=== PATIENT | male | born 1985 | race Caucasian/White ===

== ENCOUNTER 2016-06-06 00:54 | Inpatient (IN) | payer OTHER ==
[2016-06-06] VITALS (18 sets, daily range): BP systolic 120–222; BP diastolic 60–137; PULSE 53–108; RESP 17–28; TEMP 94.1–98; O2SAT 97–100
[2016-06-06] MEDS ORDERED: LORazepam 2 MG/ML VIAL ONE ×2 (00:59→01:20)
[2016-06-06] MEDS ORDERED: SUCCINYLCHOLINE CHLORIDE 200 MG/10 ML VIAL ONE (01:00)
[2016-06-06] MEDS ORDERED: ETOMIDATE 20 MG/10 ML VIAL ONE (01:01)
[2016-06-06] MEDS ORDERED: ONDANSETRON HCL 4 MG/2 ML VIAL ONE (01:14)
[2016-06-06 01:17] LABS: I-STAT POTASSIUM 3.1 MMOL/L (3.5-4.9)
[2016-06-06 01:21] LABS: AUTOMATED NEUTROPHIL # 7.2 TH/MM3 (1.8-7.7); BASOPHIL # 0.2 TH/MM3 (0-0.2); BASOPHIL % 0.9 % (0.0-2.0); EOSINOPHIL # 0.2 TH/MM3 (0-0.4); EOSINOPHIL % 1.3 % (0.0-4.0); HEMATOCRIT 44.5 % (39.0-51.0); LYMPHOCYTE # 8.2 TH/MM3 (1.0-4.8); MEAN CELL VOLUME 85.8 FL (80.0-100.0); MEAN CORPUSCULAR HEMOGLOBIN 30.5 PG (27.0-34.0); MEAN CORPUSCULAR HGB CONC 35.5 % (32.0-36.0); MONO % 7.7 % (0.0-8.0); NEUT % 42.1 % (16.0-70.0); PLATELET COUNT 333 TH/MM3 (150-450); RED BLOOD COUNT 5.18 MIL/MM3 (4.50-5.90)
[2016-06-06 01:28] LABS: APTT (PATIENT) 21.9 SEC (24.3-30.1); PROTHROMBIN TIME - PATIENT 11.1 SEC (9.8-11.6)
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
[2016-06-06 01:29] LABS: HEMO FLAGS AUTO DIFF
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
[2016-06-06] MEDS: SODIUM CHLOR 0.9% 1000 ML INJ 1,000 ML IV SCH ×3 (01:32→20:09)
[2016-06-06] MEDS ORDERED: oxyCODONE/ACETAMINOPHEN 5 MG/325 MG TAB PO PRN (01:45)
[2016-06-06] MEDS ORDERED: SODIUM CHLORIDE 0.9% FLUSH 5 ML FLUSH IVF PRN (01:45)
[2016-06-06] MEDS ORDERED: ONDANSETRON HCL 4 MG/2 ML VIAL IV PRN (01:45)
[2016-06-06] MEDS ORDERED: NALOXONE HCL 0.4 MG/ML AMP IV PRN (01:45)
[2016-06-06] MEDS ORDERED: Post-op Orders (for Pharmacy) MISC XX ONE (01:45)
[2016-06-06] MEDS ORDERED: IOHEXOL 350 MG/ML 10 ML VIAL (for RAD DIAG) IV ONE ×2 (01:47→09:25)
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
[2016-06-06 03:11] LABS: EOSINOPHILS 3 % (0-4); POLYS (SEG NEUTROPHILS) 41 % (16-70); WBC DIFF SAMPLE 100
[2016-06-06 03:12] LABS: OVALOCYTES 1+ (NORMAL); PLATELET ESTIMATE SMEAR NORMAL (NORMAL); PLATELET MORPHOLOGY NORMAL (NORMAL); SCAN/DIFF FINAL DIFF MANUAL
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
[2016-06-06] MEDS ORDERED: MORPHINE SULFATE 8 MG/ML INJ ONE (04:22)
[2016-06-06] MEDS ORDERED: hydrALAZINE HCL 20 MG/ML VIAL ONE (04:37)
[2016-06-06] MEDS ORDERED: HALOPERIDOL LACTATE 5 MG/ML AMP IM PRN (05:00)
[2016-06-06] MEDS ORDERED: fentaNYL DRIP 250 ML IV SCH ×2 (05:00→17:00)
[2016-06-06] MEDS ORDERED: MORPHINE SULFATE 4 MG/ML INJ IV PUSH PRN (05:00)
[2016-06-06] MEDS ORDERED: MIDAZOLAM 100 MG/ML INJ 100 ML IV SCH (05:00)
[2016-06-06] MEDS ORDERED: MIDAZOLAM HCL 5 MG/ML VIAL (1 ML) ONE ×2 (05:12→08:23)
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
[2016-06-06] MEDS: fentaNYL 2,500 MCG/NS 250 ML IV SCH ×2 (05:41→18:13)
[2016-06-06] MEDS: MIDAZOLAM 100 MG/NS 100 ML DRIP Premix IV SCH ×2 (05:41→18:13)
[2016-06-06] MEDS: hydrALAZINE HCL 20 MG/ML VIAL IVS PRN ×2 (05:42→07:39)
[2016-06-06] MEDS ORDERED: DEXMEDETOMIDINE 200 MCG/50 ML NS IV SCH (06:30)
[2016-06-06] MEDS ORDERED: HALOPERIDOL LACTATE 5 MG/ML AMP IV PUSH PRN (06:45)
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
[2016-06-06 07:08] LABS: AMPHETAMINE, URINE NEG (NEG); BARBITURATES, URINE NEG (NEG); COCAINE, URINE NEG (NEG)
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
[2016-06-06] MEDS ORDERED: SODIUM CHLORIDE 0.9% FLUSH 5 ML FLUSH IV FLUSH PRN (07:30)
[2016-06-06] MEDS ORDERED: RESP: ALBUTEROL 2.5 MG/IPRATROPIUM 0.5 MG NEB (PRN) INH (07:30)
[2016-06-06] MEDS: levETIRAcetam INJ 500 MG in SODIUM CHLORIDE 0.9% INJ 100 ML IV SCH ×2 (07:39→20:08)
[2016-06-06] MEDS ORDERED: ROCURONIUM INJ 50 MG/5 ML VIAL ONE (08:24)
[2016-06-06] MEDS ORDERED: MANNITOL INJ 50 ML ONE ×3 (08:35→10:35)
[2016-06-06] MEDS ORDERED: PROPOFOL 1000 MG/100 ML INJ 100 ML ONE ×4 (08:45→23:07)
[2016-06-06] MEDS ORDERED: PANTOPRAZOLE SOD 40 MG DELAYED RELEASE TAB PO SCH (09:00)
[2016-06-06] MEDS: SODIUM CHLORIDE 0.9% FLUSH 5 ML FLUSH IVF SCH ×2 (09:00→20:08)
[2016-06-06] MEDS ORDERED: SODIUM CHLORIDE 0.9% FLUSH 5 ML FLUSH IV FLUSH SCH (09:00)
[2016-06-06] MEDS: FAMOTIDINE 20 MG TAB PO SCH ×2 (09:00→20:07)
[2016-06-06] MEDS: LACTULOSE SYRUP 20 GM/30 ML CUP PO SCH (09:00)
[2016-06-06] MEDS: DOCUSATE SODIUM 100 MG CAP PO SCH ×2 (09:00→20:08)
[2016-06-06] MEDS ORDERED: MAGNESIUM SULFATE INJ 4 GM in DEXTROSE 5% IN WATER 100ML INJ 92 ML IV PRN ×2 (09:15)
[2016-06-06] MEDS ORDERED: POTASSIUM PHOSPHATE MONOBASIC 500 MG TAB PO PRN (09:15)
[2016-06-06] MEDS ORDERED: MAGNESIUM OXIDE 400 MG TAB PO PRN (09:15)
[2016-06-06] MEDS ORDERED: POTASSIUM PHOSPHATE MONOBASIC 500 MG TAB PO/TUBE PRN (09:15)
[2016-06-06] MEDS ORDERED: DEXTROSE 5% IV PRN ×2 (09:15)
[2016-06-06] MEDS ORDERED: SODIUM PHOSPHATE INJ 30 MMOL in SODIUM CHLOR 0.9% 250 ML INJ 240 ML IV PRN (09:15)
[2016-06-06] MEDS ORDERED: MAGNESIUM SULFATE IV PRN ×2 (09:15)
[2016-06-06] MEDS ORDERED: WATER IV PRN ×2 (09:15)
[2016-06-06] MEDS ORDERED: POTASSIUM CHLOR 40 MEQ PREMIX 100 ML IV PRN (09:15)
[2016-06-06] MEDS ORDERED: POTASSIUM CHLOR 20 MEQ PREMIX 100 ML IV PRN ×2 (09:15)
--- NOTE | 2016-06-06 09:20 | RADRPT ---
EXAM DATE/TIME: 06/06/2016 09:01 [facility] COMPARISON: CT BRAIN W/O CONTRAST, June 06, 2016, 1:17. INDICATIONS : Changes since prior CT. Dilated right pupil. RADIATION DOSE: 56.35 CTDIvol (mGy) MEDICAL HISTORY : Non-responsive. SURGICAL HISTORY : Non-responsive. ENCOUNTER: Subsequent ACUITY: 2 days PAIN SCALE: Non-responsive LOCATION: cranial TECHNIQUE: Multiple contiguous axial images were obtained of the head. Using automated exposure control and adj ustment of the mA and/or kV according to patient size, radiation dose was kept as low as reasonably a chievable to obtain optimal diagnostic quality images. FINDINGS: CEREBRUM: Since the prior exam the patient has developed a large 7 cm parenchymal right frontal hematoma that e xtends into the right lateral ventricle. Hemorrhage is seen within the right lateral ventricle, left lateral ventricle, third ventricle and fourth ventricle now. There continues to be subarachnoid hemor rhage throughout. There are areas of contusion at the anterior aspect of the frontal lobes bilaterall y a more prominent right. There is new hemorrhage in the anterolateral aspect of the posterior fossa adjacent to the inferior kindra. The there is 1.4 cm of right to left midline shift. The basal cisterns and cortical sulci are completely effaced. POSTERIOR FOSSA: Hemorrhage is seen in the fourth ventricle. There is new hemorrhage in the anterolateral aspect of th e posterior fossa adjacent to the inferior kindra. No CSF is seen at the foramen magnum. EXTRACRANIAL: The visualized portion of the orbits is intact. There is a large soft tissue hematoma at the left SKULL: There is fracturing of the left occipital bone adjacent to the left parietal bone. This fracture exte nds into the medial aspect of the right mastoids. Again noted is the skull base fracture on the left. CONCLUSION: Development of a large right frontal hematoma with extension into the ventricular system. There is ve ry prominent midline shift from right to left of 1.4 cm and effacement of the cortical sulci, basal c isterns, and the foramen magnum. There continues to be subarachnoid hemorrhage and inferior bifrontal hematomas. Gasper Duarte MD on June 06, 2016 at 9:11 Board Certified Radiologist. This report was verified electronically.
[2016-06-06] MEDS: RESP: ALBUTEROL 2.5 MG/IPRATROPIUM 0.5 MG NEB (SCH) INH ×3 (10:00→20:29)
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
[2016-06-06] MEDS ORDERED: NORMOSOL R INJ 2,000 ML IV ONE (10:24)
[2016-06-06] MEDS ORDERED: PROPOFOL 200 MG/20 ML AMP IV ONE (10:24)
[2016-06-06] MEDS ORDERED: SODIUM CHLORID 0.9% 500 ML INJ 500 ML IV ONE (10:24)
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
[2016-06-06] MEDS ORDERED: THROMBIN (TOPICAL) 5,000 UNIT VIAL ONE ×2 (11:00→12:53)
[2016-06-06] MEDS ORDERED: GELFOAM SIZE 100 OTHER ONE (11:00)
[2016-06-06] MEDS ORDERED: GENTAMICIN SULFATE 80 MG/2 ML VIAL IRRIGATION ONE (11:00)
[2016-06-06] MEDS ORDERED: LIDOCAINE 1%/EPINEPHrine 1:100,000 SOLN 30 ML VIAL INFIL ONE (11:00)
[2016-06-06] MEDS ORDERED: ceFAZolin INJ 1,000 MG VIAL IV ONE (11:30)
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
--- NOTE | 2016-06-06 11:43 | PD.PROCEDR ---
Procedure Note Procedure DX: Encephalopthy, Respiratory Failure (J96.01) OP: Orotracheal Intubation (20999) Procedure: Bag mask ventilation using oral airway. Versed 10 mg and rocuronium 100 mg IV. Intubated orally with 8.0 tube. Position confirmed with CO2 detection, breath sounds, sats 100%. CXR pending, will review. William Duarte MD Jun 06, 2016 11:43
[2016-06-06] MEDS ORDERED: fentaNYL CITRATE 250 MCG/5 ML AMP ONE ×2 (11:47→12:19)
[2016-06-06 12:05] LABS: BLOOD GAS BASE EXCESS -7.6 mmol/L (-2-2); BLOOD GAS CARBOXYHEMOGLOBIN 1.6 % (0-4); BLOOD GAS HCO3 16 mmol/L (22-26); BLOOD GAS METHEMOGLOBIN 1.2 % (0-2); BLOOD GAS O2 HGB SATURATION 97 % (90-100); BLOOD GAS OXYGEN CONTENT 20.2 Vol % (12.0-20.0); BLOOD GAS PCO2 28 mmHg (38-42); BLOOD GAS PO2 287 mmHg (61-120); BLOOD GAS TOTAL HGB 14.4 G/DL (12.0-16.0); TEMP CORR TO 98.6
[2016-06-06 12:06] LABS: CRITICAL VALUE YES; DRAW SITE ALINE; FIO2 70 %; OXYGEN DEVICE O.R. GAS; STAT YES
[2016-06-06] MEDS ORDERED: MIDAZOLAM HCL 2 MG/2 ML VIAL ONE (12:19)
--- NOTE | 2016-06-06 15:29 | RADRPT ---
EXAM DATE/TIME: 06/06/2016 15:05 [facility] COMPARISON: No previous studies available for comparison. INDICATIONS : Evaluate central line placement. MEDICAL HISTORY : None. SURGICAL HISTORY : None. ENCOUNTER: Initial ACUITY: 1 day PAIN SCORE: 0/10 LOCATION: Right chest FINDINGS: No infiltrate, effusion or pneumothorax seen. Cardiomediastinal contours remain within normal limits. Patient is intubated. Endotracheal tube tip is about 4 cm above the ruby. There is a right internal jugular cordis with tip in the superior vena cava. Nasogastric tube courses into the stomach. CONCLUSION: Appropriate line and tube positions as above. Clear lungs. Gasper Mijares MD on June 06, 2016 at 15:26 Board Certified Radiologist. This report was verified electronically.
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
[2016-06-06 16:02] LABS: BLOOD GAS BASE EXCESS -4.9 mmol/L (-2-2); BLOOD GAS HCO3 18 mmol/L (22-26); BLOOD GAS METHEMOGLOBIN 0.9 % (0-2); BLOOD GAS O2 HGB SATURATION 98 % (90-100); BLOOD GAS OXYGEN CONTENT 20.3 Vol % (12.0-20.0); BLOOD GAS PCO2 27 mmHg (38-42); BLOOD GAS PO2 501 mmHg (61-120); BLOOD GAS TOTAL HGB 13.8 G/DL (12.0-16.0); CRITICAL VALUE NO; DRAW SITE ALINE; FIO2 100 %; OXYGEN DEVICE VENTILATOR; TEMP CORR TO 98.6; VENT SETTINGS PRVC
[2016-06-06 16:03] LABS: STAT NO
--- NOTE | 2016-06-06 17:18 | HHI.CCPN ---
Subjective 24 Hour Review/Hospital Course Patient was brought to ICU confused around 3 in the morning. At that time the the injury was confined to skull fractures and the some subarachnoid and subdural bleeding with intraparenchymal patchy hemorrhages on the left side. He was evaluated and seen in the ICU by Dr. Mccormick the neurosurgeon. Apparently around 10 AM patient suddenly blew right pupil and had to be intubated and the ventilated. He is now noted to have a large right intra-cerebral bleed and has been taken to the operating room for evacuation of the same. Objective Vital Signs Date Time Temp Pulse Resp B/P Pulse Ox O2 Delivery O2 Flow Rate FiO2 06/06/16 16:35 100 50 06/06/16 16:00 72 06/06/16 16:00 95.0 24 126/62 06/06/16 00:55 Non-Rebreather 15.00 Result Diagram: 06/06/16 0055 Other Results Laboratory Tests Test 06/06/16 06/06/16 11:43 15:58 Blood Gas Puncture Site [facility] Blood Gas Patient Temperature 98.6 98.6 Blood Gas HCO3 16 mmol/L 18 mmol/L (22-26) (22-26) Blood Gas Base Excess -7.6 mmol/L -4.9 mmol/L (-2-2) (-2-2) Blood Gas Oxygen Saturation 97 % (90-100) 98 % (90-100) Arterial Blood pH 7.39 7.45 (7.380-7.420) (7.380-7.420) Arterial Blood Partial 28 mmHg (38-42) 27 mmHg (38-42) Pressure CO2 Arterial Blood Partial 287 mmHg 501 mmHg Pressure O2 (61-120) (61-120) Arterial Blood Oxygen Content 20.2 Vol % 20.3 Vol % (12.0-20.0) (12.0-20.0) Arterial Blood 1.6 % (0-4) 1.0 % (0-4) Carboxyhemoglobin Arterial Blood Methemoglobin 1.2 % (0-2) 0.9 % (0-2) Blood Gas Hemoglobin 14.4 G/DL 13.8 G/DL (12.0-16.0) (12.0-16.0) Oxygen Delivery Device O.R. GAS VENTILATOR Blood Gas Inspired Oxygen 70 % 100 % Blood Gas Ventilator Setting PRVC Exam [employer] Status post craniotomy and evacuation of a right intraparenchymal hematoma and ventriculostomy placement ICPs are normal in the range of 4-10 mmHg and center perfusion pressure remains around 80 mmHg with some Levophed in order to maintain mean arterial pressure [place] Coma Scale is now 3 patient is on small dose propofol Will add fentanyl Hemodynamic/Cardiac Hemodynamically intact with the Levophed to maintain maintain perfusion pressure Pulmonary/Respiratory Bilateral breath sounds ventilatory supported Abdomen/GI Nutrition Abdomen soft Assessment and Plan Attestation The exam, history, and the medical decision-making described in the above note were completed with the assistance of the mid-level provider. I reviewed and agree with the findings presented. I attest that I had a [id number] encounter with the patient on the same day, and personally performed and documented my assessment and findings in the medical record. Critical care time 40 minutes. Quyen Juares MD Jun 06, 2016 17:18
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
[2016-06-06] MEDS ORDERED: 3% SALINE INJ 500 ML IV ONE (18:15)
[2016-06-06 19:11] LABS: ANION GAP 10 MEQ/L (5-15); AST (GOT) 34 U/L (15-37); BICARBONATE 22.7 MEQ/L (21.0-32.0); BLOOD UREA NITROGEN 10 MG/DL (7-18); CHLORIDE 110 MEQ/L (98-107); GLOMERULAR FILTRATION RATE 60 ML/MIN (>89); POTASSIUM 3.8 MEQ/L (3.5-5.1); SODIUM (NA) 143 MEQ/L (136-145)
[2016-06-06 19:15] LABS: ALKALINE PHOSPHATASE 48 U/L (45-117); ALT (GPT) 41 U/L (12-78); TOTAL BILIRUBIN ADULT 1.1 MG/DL (0.2-1.0)
[2016-06-06] MEDS ORDERED: SODIUM CHLORIDE 23.4% INJ 240 MEQ in SYRINGE/BAG 1 EA IV ONE (19:30)
[2016-06-06] MEDS: CHLORHEXIDINE 0.12% (ORAL KIT) 15 ML CUP MT SCH (20:00)
[2016-06-06] MEDS: MAGNESIUM HYDROXIDE SUSP 30 ML CUP PO SCH (20:07)
[2016-06-06 21:01] LABS: MEAN CORPUSCULAR HGB CONC 36.3 % (32.0-36.0)
[2016-06-07] VITALS (27 sets, daily range): BP systolic 99–154; BP diastolic 51–69; PULSE 82–109; RESP 20–24; TEMP 95.9–98.1; O2SAT 92–100
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
[2016-06-07] MEDS ORDERED: PROPOFOL 1000 MG/100 ML INJ 100 ML ONE ×3 (01:25→11:21)
[2016-06-07] MEDS: fentaNYL 2,500 MCG/NS 250 ML IV SCH ×3 (02:34→20:30)
[2016-06-07] MEDS: MIDAZOLAM 100 MG/NS 100 ML DRIP Premix IV SCH ×2 (02:40→12:22)
[2016-06-07] MEDS: RESP: ALBUTEROL 2.5 MG/IPRATROPIUM 0.5 MG NEB (SCH) INH ×4 (03:31→22:50)
--- NOTE | 2016-06-07 05:15 | RADRPT ---
EXAM DATE/TIME: 06/07/2016 04:31 [facility] COMPARISON: CT BRAIN W/O CONTRAST, June 06, 2016, 9:01. INDICATIONS : Follow-up bleed. RADIATION DOSE: 56.35 CTDIvol (mGy) MEDICAL HISTORY : Non-responsive. SURGICAL HISTORY : Non-responsive. ENCOUNTER: Subsequent ACUITY: 2 days PAIN SCALE: Non-responsive LOCATION: cranial TECHNIQUE: Multiple contiguous axial images were obtained of the head. Using automated exposure control and adj ustment of the mA and/or kV according to patient size, radiation dose was kept as low as reasonably a chievable to obtain optimal diagnostic quality images. FINDINGS: Postsurgical findings are now seen. Catheter is seen entering the right frontal region with the tip a djacent to the third ventricle. Evidence of right frontal craniectomy. Large right frontal parenchyma l hemorrhage is again seen with decrease in size. The more inferior component is unchanged. The more superior component is much smaller, now measuring 1.5 cm in greatest AP dimension compared to 7.0 cm on the prior study. Gas is seen in this region consistent with interval surgery. Surrounding parenchy mal hypodensity indicates edema/infarct. There has been interval decrease in right to left midline sh ift, and now measures 6 mm compared to 14 mm on the prior study. Intraventricular hemorrhage has decr eased. Hemorrhage is again seen in the lateral ventricles, third ventricle, and fourth ventricle. Infarct is seen in the posterior cerebral artery distribution on the right measuring 5.9 x 2.9 cm in axial dimensions. Hemorrhage at the lateral aspect of the middle cranial fossa on the right is unchan ged measuring 1.1 cm thickness. New 2 cm infarct in the posterior left cerebellar hemisphere. CONCLUSION: 1. Postsurgical findings in the right frontal lobe with marked decrease in size of parenchymal hemato ma and decrease in right to left midline shift. 2. Persistent intraventricular hemorrhage. 3. Infarcts are now seen in the right frontal lobe, as well as in the right parieto-occipital region (posterior cerebral artery distribution. 4. Infarct in the left cerebellar hemisphere. 5. Right frontal catheter now seen with tip adjacent to the third ventricle. Clifton Cartwright MD on June 07, 2016 at 5:06 Board Certified Radiologist. This report was verified electronically.
[2016-06-07 05:21] LABS: AUTOMATED NEUTROPHIL # 13.7 TH/MM3 (1.8-7.7); BASOPHIL # 0.1 TH/MM3 (0-0.2); BASOPHIL % 0.6 % (0.0-2.0); HEMATOCRIT 34.2 % (39.0-51.0); LYMPH % 8.2 % (9.0-44.0); LYMPHOCYTE # 1.4 TH/MM3 (1.0-4.8); MEAN CORPUSCULAR HEMOGLOBIN 31.3 PG (27.0-34.0); MONO % 8.9 % (0.0-8.0); NEUT % 82.3 % (16.0-70.0); PLATELET COUNT 207 TH/MM3 (150-450); RED BLOOD COUNT 3.98 MIL/MM3 (4.50-5.90); RED CELL DISTRIBUTION WIDTH 14.4 % (11.6-17.2); WHITE BLOOD COUNT 16.6 TH/MM3 (4.0-11.0)
[2016-06-07 05:24] LABS: HEMO FLAGS AUTO DIFF
--- NOTE | 2016-06-07 05:43 | RADRPT ---
EXAM DATE/TIME: 06/07/2016 03:43 [facility] COMPARISON: CHEST SINGLE AP, June 06, 2016, 15:05. INDICATIONS : Post trauma. MEDICAL HISTORY : None. SURGICAL HISTORY : None. ENCOUNTER: Subsequent ACUITY: 2 days PAIN SCORE: Non-responsive. LOCATION: Bilateral chest FINDINGS: Single AP view of the chest. Endotracheal tube and nasogastric tube unchanged. The patient is quite r otated to the right. The lungs are grossly clear. Cardiomediastinal silhouette within normal limits. No evidence of pleural effusion or pneumothorax. CONCLUSION: No acute cardiopulmonary disease identified. Clifton Cartwright MD on June 07, 2016 at 5:41 Board Certified Radiologist. This report was verified electronically.
[2016-06-07 05:57] LABS: BICARBONATE 23.9 MEQ/L (21.0-32.0); POTASSIUM 3.9 MEQ/L (3.5-5.1)
[2016-06-07 05:59] LABS: INDIRECT BILIRUBIN 0.5 MG/DL (0.0-0.8); TOTAL BILIRUBIN ADULT 0.8 MG/DL (0.2-1.0)
[2016-06-07 06:55] LABS: OVALOCYTES 1+ (NORMAL); SCAN/DIFF AUTO DIFF CONFIRMED
[2016-06-07] MEDS ORDERED: TERBUTALINE INJ 1 MG/ML AMP SQ PRN (09:00)
[2016-06-07] MEDS: MORPHINE SULFATE 4 MG/ML INJ IV PRN (09:51)
[2016-06-07] MEDS: NOREPINEPHRINE-DEXTROSE DRIP 250 ML IV SCH ×3 (09:52→20:40)
[2016-06-07] MEDS: levETIRAcetam INJ 500 MG in SODIUM CHLORIDE 0.9% INJ 100 ML IV SCH ×2 (09:57→21:34)
[2016-06-07] MEDS: FAMOTIDINE 20 MG TAB PO SCH ×2 (09:58→21:34)
[2016-06-07] MEDS: DOCUSATE SODIUM 100 MG CAP PO SCH ×2 (09:58→21:34)
[2016-06-07] MEDS: SODIUM CHLORIDE 0.9% FLUSH 5 ML FLUSH IVF SCH ×2 (09:58→21:00)
[2016-06-07] MEDS: LACTULOSE SYRUP 20 GM/30 ML CUP PO SCH (09:58)
[2016-06-07] MEDS: CHLORHEXIDINE 0.12% (ORAL KIT) 15 ML CUP MT SCH ×2 (09:59→20:00)
[2016-06-07] MEDS: SODIUM CHLOR 0.9% 1000 ML INJ 1,000 ML IV SCH ×2 (10:00→15:44)
[2016-06-07] MEDS: MULTIVITAMIN INJ 10 ML, THIAMINE INJ 100 MG, FOLIC ACID INJ 1 MG in SODIUM CHLORID 0.9%... IV SCH (10:22)
--- NOTE | 2016-06-07 11:29 | HHI.NSPN ---
Subjective History Day 1 after [facility], day 2 after craniectomy, ICP 5-40, CPP 50-65, s/p herniation, multiple areas of infarctions in the right frontal and temporal regions and in the left cerebellum. He is intubated and sedated with hypertonic saline and seizure prophylaxis. Pressors were added to improve his perfusion pressures. Vitals . Vital Signs Date Time Temp Pulse Resp B/P Pulse Ox O2 Delivery O2 Flow Rate FiO2 06/07/16 07:48 98 40 06/07/16 06:00 91 06/07/16 05:00 96.8 06/07/16 04:54 98 100 06/07/16 04:13 99 50 06/07/16 04:00 98 06/07/16 04:00 50 06/07/16 04:00 96.8 93 22 100 106/53 06/07/16 03:00 96.8 06/07/16 02:00 100 06/07/16 01:00 96.1 06/07/16 00:40 99 50 06/07/16 00:00 96.1 100 24 100 99/51 06/07/16 00:00 50 06/07/16 00:00 100 06/06/16 23:00 96.1 06/06/16 22:00 105 06/06/16 21:00 95.7 06/06/16 20:53 99 50 06/06/16 20:00 108 06/06/16 20:00 96.3 93 24 100 120/60 06/06/16 20:00 96.3 06/06/16 20:00 50 06/06/16 18:00 68 06/06/16 17:00 95.8 06/06/16 16:35 100 50 06/06/16 16:31 100 50 06/06/16 16:00 72 06/06/16 16:00 50 06/06/16 16:00 95.0 74 24 100 126/62 06/06/16 14:00 65 06/06/16 14:00 94.6 70 24 135/72 100 135/65 06/06/16 14:00 94.1 06/06/16 06/06/16 06/07/16 15:00 23:00 07:00 Intake Total 2025 ml 930 ml Output Total 2450 ml 835 ml Balance -425 ml 95 ml Physical Exam Head Head: Incision (dressed, QIAN draining) Eyes Eyes: Pupils Equal (1mm) Neuro Face: Symmetric Reena Coma Scale Best Eye Openin - None Best Verbal: 1 - None Best Motor: 1 - None Respiratory Respiratory: CTA Gastrointestinal Bowel Sounds: Present Genitourinary Genitourinary: Basurto Catheter In Place Musculoskeletal Extremities Upper Extremities Deltoid Bicep Tricep HI W. Ext Right Left Lower Extremeties Ilio Quad Plantar Dorsi EHL Right Left Dermatologic Dermatologic: Skin Intact Extremities Edema: Edematous Objective Drains Ventric @: 5 cm H2O Ventric Draining: Blood Tinged CSF Labs Laboratory Tests 06/06/16 18:09 06/07/16 00:05 06/07/16 05:11 Laboratory Tests Test 06/06/16 06/07/16 06/07/16 18:09 00:05 05:11 Sodium Level 143 MEQ/L 153 MEQ/L 155 MEQ/L Potassium Level 3.8 MEQ/L 3.9 MEQ/L Chloride Level 110 MEQ/L 124 MEQ/L Carbon Dioxide Level 22.7 MEQ/L 23.9 MEQ/L Anion Gap 10 MEQ/L 7 MEQ/L Blood Urea Nitrogen 10 MG/DL 11 MG/DL Creatinine 1.07 MG/DL 0.89 MG/DL Estimat Glomerular Filtration 60 ML/MIN 74 ML/MIN Rate Random Glucose 158 MG/DL 114 MG/DL Serum Osmolality 296 MOSM/KG 314 MOSM/KG 314 MOSM/KG Calcium Level 7.9 MG/DL 7.9 MG/DL Total Bilirubin 1.1 MG/DL 0.8 MG/DL Aspartate Amino Transf 34 U/L 34 U/L (AST/SGOT) Alanine Aminotransferase 41 U/L 34 U/L (ALT/SGPT) Alkaline Phosphatase 48 U/L 42 U/L Total Protein 6.5 GM/DL 5.9 GM/DL Albumin 3.6 GM/DL 3.2 GM/DL Direct Bilirubin 0.3 MG/DL Indirect Bilirubin 0.5 MG/DL Imaging Remarks Last Impressions Head CT 06/06/16 0115 Signed Impressions: Service Date/Time: Monday, June 06, 2016 01:17 - CONCLUSION: 1. Several skull fractures involving left mid convexity occipital region (with associated scalp hematoma), inferior left occipital bone extending to the foramen magnum ( mildly displaced), and lateral wall of the left sphenoid sinus. 2. Small parenchymal hemorrhage along the inferior aspect of the left frontal lobe, right sylvian subarachnoid hemorrhage, and small peripheral hemorrhages in the left cerebellar hemisphere adjacent to the lower occipital fracture. 3. No evidence of midline shift or transtentorial herniation. Anil Mcneill MD Cervical Spine CT 06/06/165 Signed Impressions: Service Date/Time: Monday, June 06, 2016 01:17 - CONCLUSION: 1. Left inferior occipital bone fracture extends from posterior cortex to the base of the skull with involvement of the left occipital condyle and the posterolateral aspect of the foramen magnum. 2. No fractures seen in the cervical vertebral bodies or posterior elements. Anil Mcneill MD Pelvis X-Ray 06/06/16101 Signed Impressions: Service Date/Time: Monday, June 06, 2016 00:52 - CONCLUSION: No gross bony abnormality seen. Anil Mcneill MD Chest X-Ray 06/06/16101 Signed Impressions: Service Date/Time: Monday, June 06, 2016 00:52 - CONCLUSION: The lungs are symmetrically aerated and clear. Anil Mcneill MD Chest CT 06/06/16101 Signed Impressions: Service Date/Time: Monday, June 06, 2016 01:26 - CONCLUSION: Negative trauma CT thorax. Anil Mcneill MD Abdomen/Pelvis CT 06/06/16101 Signed Impressions: Service Date/Time: Monday, June 06, 2016 01:26 - CONCLUSION: 1. No distended loops of small and large bowel. Questionable thickening of the wall of the ascending colon is nonspecific in appearance. Recommend followup. 2. Prior right inguinal hernia surgery. Right hydrocele. 3. The solid organs of the abdomen and pelvis are grossly intact. Anil Mcneill MD Head CTA 06/06/16 0000 Signed Impressions: Service Date/Time: Monday, June 06, 2016 08:58 - CONCLUSION: Large right frontal hematoma displacing the right anterior cerebral artery. The right anterior cerebral artery is decreased in caliber throughout its visualized length. Gasper Duarte MD Assessment & Plan Diagnosis: (1) Closed skull base fx/hem NEC (2) Skull fracture with concussion (3) Subarach hem-concussion Plan: Traumatic SAH will be at risk for increased bleeding, increased ICP, vasospasm, CSF leak. We will monitor clinically and radiologically. Sedation requested with fentanyl/versed and haldol PRN as well as CTA of the brain to rule out dissection. Seizure, DVT and PUD prophylaxis per protocol. 06/07/16 Malignant ICP is expected even after craniectomy, we will start pressors and try to improve the perfusion pressures. The severity of the injury was discussed with his mother. Vince Mccormick Jun 07, 2016 11:29
[2016-06-07] MEDS: VALPROATE INJ 500 MG in SODIUM CHLORIDE 0.9% INJ 100 ML IV SCH ×3 (11:39→23:43)
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
[2016-06-07] MEDS ORDERED: 3% SALINE INJ 500 ML IV SCH (13:15)
[2016-06-07] MEDS: PROPOFOL 1000 MG/100 ML IV SCH ×3 (15:18→22:31)
[2016-06-07] MEDS ORDERED: DULO20 PO (15:34)
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
[2016-06-07] MEDS: MAGNESIUM HYDROXIDE SUSP 30 ML CUP PO SCH (21:34)
[2016-06-08] VITALS (18 sets, daily range): BP systolic 130–170; BP diastolic 62–89; PULSE 87–121; RESP 16–28; TEMP 96.3–97; O2SAT 93–100
[2016-06-08] MEDS: MIDAZOLAM 100 MG/NS 100 ML DRIP Premix IV SCH ×3 (00:21→20:22)
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
[2016-06-08] MEDS: PROPOFOL 1000 MG/100 ML IV SCH ×6 (02:18→20:48)
[2016-06-08] MEDS: RESP: ALBUTEROL 2.5 MG/IPRATROPIUM 0.5 MG NEB (SCH) INH ×4 (03:17→20:17)
[2016-06-08] MEDS: SODIUM CHLOR 0.9% 1000 ML INJ 1,000 ML IV SCH ×3 (03:19→23:32)
--- NOTE | 2016-06-08 05:06 | RADRPT ---
EXAM DATE/TIME: 06/08/2016 03:10 [facility] COMPARISON: CHEST SINGLE AP, June 07, 2016, 3:43. INDICATIONS : Shortness of breath. MEDICAL HISTORY : None. SURGICAL HISTORY : None. ENCOUNTER: Subsequent ACUITY: 2 days PAIN SCORE: Non-responsive. LOCATION: Bilateral chest FINDINGS: Single AP view of the chest. Endotracheal tube and nasogastric tube are again seen. There is new conf luent mid to lower lungs on opacity in the left lung indicating consolidation. Small to moderate left pleural effusion. No evidence of pneumothorax. CONCLUSION: New prominent left mid to lower lung zone consolidation and small to moderate sized left pleural effu vikram. Clifton Cartwright MD on June 08, 2016 at 5:04 Board Certified Radiologist. This report was verified electronically.
[2016-06-08] MEDS: fentaNYL 2,500 MCG/NS 250 ML IV SCH ×2 (05:27→15:25)
[2016-06-08 05:37] LABS: BLOOD GAS CARBOXYHEMOGLOBIN 1.1 % (0-4); BLOOD GAS HCO3 23 mmol/L (22-26); BLOOD GAS METHEMOGLOBIN 1.1 % (0-2); BLOOD GAS O2 HGB SATURATION 94 % (90-100); BLOOD GAS OXYGEN CONTENT 16.2 Vol % (12.0-20.0); BLOOD GAS PCO2 53 mmHg (38-42); BLOOD GAS PO2 90 mmHg (61-120); BLOOD GAS TOTAL HGB 12.2 G/DL (12.0-16.0); TEMP CORR TO 98.6
[2016-06-08 05:38] LABS: CRITICAL VALUE YES; OXYGEN DEVICE VENTILATOR
[2016-06-08 05:39] LABS: DRAW SITE ART LINE; FIO2 70 %
[2016-06-08 05:40] LABS: STAT NO; ULNAR PULSE PRESENT
[2016-06-08] MEDS: VALPROATE INJ 500 MG in SODIUM CHLORIDE 0.9% INJ 100 ML IV SCH ×3 (06:00→17:19)
[2016-06-08] MEDS: NOREPINEPHRINE INJ 4 MG in SODIUM CHLOR 0.9% 250 ML INJ 246 ML IV SCH ×4 (06:36→19:50)
[2016-06-08 06:56] LABS: BASOPHIL # 0.1 TH/MM3 (0-0.2); BASOPHIL % 0.8 % (0.0-2.0); EOSINOPHIL % 0.1 % (0.0-4.0); HEMATOCRIT 34.8 % (39.0-51.0); HEMO FLAGS DIFF FINAL; LYMPH % 7.6 % (9.0-44.0); LYMPHOCYTE # 1.1 TH/MM3 (1.0-4.8); MEAN CELL VOLUME 90.1 FL (80.0-100.0); MEAN CORPUSCULAR HEMOGLOBIN 30.2 PG (27.0-34.0); MEAN CORPUSCULAR HGB CONC 33.6 % (32.0-36.0); MONO % 4.7 % (0.0-8.0); NEUT % 86.8 % (16.0-70.0); PLATELET COUNT 230 TH/MM3 (150-450); RED BLOOD COUNT 3.86 MIL/MM3 (4.50-5.90); RED CELL DISTRIBUTION WIDTH 15.3 % (11.6-17.2)
[2016-06-08 07:29] LABS: ALKALINE PHOSPHATASE 48 U/L (45-117); ALT (GPT) 27 U/L (12-78); AST (GOT) 36 U/L (15-37); BICARBONATE 26.7 MEQ/L (21.0-32.0); BLOOD UREA NITROGEN 5 MG/DL (7-18); CHLORIDE 129 MEQ/L (98-107); GLOMERULAR FILTRATION RATE 88 ML/MIN (>89); MAGNESIUM 2.6 MG/DL (1.5-2.5); POTASSIUM 3.8 MEQ/L (3.5-5.1); TOTAL BILIRUBIN ADULT 0.6 MG/DL (0.2-1.0)
[2016-06-08 07:32] LABS: ANION GAP 7 MEQ/L (5-15); SODIUM (NA) 163 MEQ/L (136-145)
[2016-06-08] MEDS: CHLORHEXIDINE 0.12% (ORAL KIT) 15 ML CUP MT SCH ×2 (08:16→20:47)
--- NOTE | 2016-06-08 08:41 | HHI.NSPN ---
Subjective History Day 1 after INTERMEDIATE, day 2 after craniectomy, ICP 5-40, CPP 50-65, s/p herniation, multiple areas of infarctions in the right frontal and temporal regions and in the left cerebellum. He is intubated and sedated with hypertonic saline and seizure prophylaxis. Pressors were added to improve his perfusion pressures. 06/08/16 New left pulmonary effusion or atelectasis, PCO2 up to 53, CPP still 20- 30, pupils remain small on sedation with propofol/fentanyl and versed Vitals . Vital Signs Date Time Temp Pulse Resp B/P Pulse Ox O2 Delivery O2 Flow Rate FiO2 06/08/16 06:00 120 06/08/16 04:26 94 70 06/08/16 04:00 114 06/08/16 04:00 96.3 114 16 94 136/62 06/08/16 04:00 70 06/08/16 02:00 102 06/08/16 01:09 94 70 06/08/16 00:00 102 06/08/16 00:00 70 06/08/16 00:00 96.3 102 16 93 163/68 06/07/16 22:51 92 40 06/07/16 22:00 90 06/07/16 20:00 98 06/07/16 20:00 40 06/07/16 20:00 97.1 99 20 97 145/69 06/07/16 19:15 96.1 06/07/16 18:00 98 06/07/16 17:20 50 06/07/16 17:00 97.2 06/07/16 16:24 96 40 06/07/16 16:00 97.7 107 22 96 154/65 06/07/16 16:00 50 06/07/16 16:00 107 06/07/16 15:00 98.1 06/07/16 14:00 97.9 06/07/16 14:00 109 06/07/16 12:00 96.4 96 22 96 145/58 06/07/16 12:00 96 06/07/16 12:00 50 06/07/16 12:00 96.4 06/07/16 11:55 97 40 06/07/16 10:00 50 06/07/16 10:00 82 06/07/16 09:00 96.4 06/07/16 06/07/16 06/08/16 15:00 23:00 07:00 Intake Total 1745 ml 2053 ml Output Total 1034 ml 1243 ml Balance 711 ml 810 ml Physical Exam Head Head: Incision (dressed, dry) Eyes Eyes: Pupils Equal (1.5mm) Neuro Mental Status: Sedated Drips: Diprivan @, Fentanyl @, Versed @ Reena Coma Scale Best Eye Openin - None Best Verbal: 1 - None Best Motor: 1 - None Cardiac Cardiac: Tachycardiac Respiratory Respiratory: Diminished (left base) Gastrointestinal Gastrointestinal: Soft Bowel Sounds: Diminished Genitourinary Genitourinary: Basurto Catheter In Place Musculoskeletal Extremities Upper Extremities Deltoid Bicep Tricep HI W. Ext Right Left Lower Extremeties Ilio Quad Plantar Dorsi EHL Right Left Dermatologic Dermatologic: Abrasions Extremities Edema: SCDs Objective Infectious Disease Cultures Microbiology Date/Time Procedure Status Source Growth 06/07/16 10:45 Aerobic Blood Culture Received Blood Peripheral Pending 06/07/16 10:45 Anaerobic Blood Culture Received Blood Peripheral Pending 06/07/16 10:55 Aerobic Blood Culture Received Blood Peripheral Pending 06/07/16 10:55 Anaerobic Blood Culture Received Blood Peripheral Pending Drains Ventric @: 5 cm H2O Ventric Draining: Blood Tinged CSF QIAN Drain Output (ml): 70 Labs Laboratory Tests 06/07/16 11:45 06/07/16 18:40 06/07/16 23:55 06/08/16 06:30 Laboratory Tests Test 06/07/16 06/07/16 06/07/16 06/08/16 11:45 18:40 23:55 06:30 Sodium Level 153 MEQ/L 153 MEQ/L 162 MEQ/L 163 MEQ/L Serum Osmolality 317 MOSM/KG 318 MOSM/KG 328 MOSM/KG 332 MOSM/KG Lactic Acid Level 0.8 mmol/L Potassium Level 3.8 MEQ/L Chloride Level 129 MEQ/L Carbon Dioxide Level 26.7 MEQ/L Anion Gap 7 MEQ/L Blood Urea Nitrogen 5 MG/DL Creatinine 0.98 MG/DL Estimat Glomerular Filtration 88 ML/MIN Rate Random Glucose 93 MG/DL Calcium Level 8.1 MG/DL Phosphorus Level 2.8 MG/DL Magnesium Level 2.6 MG/DL Total Bilirubin 0.6 MG/DL Aspartate Amino Transf 36 U/L (AST/SGOT) Alanine Aminotransferase 27 U/L (ALT/SGPT) Alkaline Phosphatase 48 U/L Total Protein 5.9 GM/DL Albumin 2.6 GM/DL Imaging Remarks Last Impressions Neck CTA 06/06/1657 Signed Impressions: Service Date/Time: Monday, June 06, 2016 08:58 - CONCLUSION: Normal examination. Gasper Duarte MD Head CT 06/06/16114 Signed Impressions: Service Date/Time: Monday, June 06, 2016 01:17 - CONCLUSION: 1. Several skull fractures involving left mid convexity occipital region (with associated scalp hematoma), inferior left occipital bone extending to the foramen magnum ( mildly displaced), and lateral wall of the left sphenoid sinus. 2. Small parenchymal hemorrhage along the inferior aspect of the left frontal lobe, right sylvian subarachnoid hemorrhage, and small peripheral hemorrhages in the left cerebellar hemisphere adjacent to the lower occipital fracture. 3. No evidence of midline shift or transtentorial herniation. Anil Mcneill MD Cervical Spine CT 06/06/16114 Signed Impressions: Service Date/Time: Monday, June 06, 2016 01:17 - CONCLUSION: 1. Left inferior occipital bone fracture extends from posterior cortex to the base of the skull with involvement of the left occipital condyle and the posterolateral aspect of the foramen magnum. 2. No fractures seen in the cervical vertebral bodies or posterior elements. Anil Mcneill MD Pelvis X-Ray 06/06/16101 Signed Impressions: Service Date/Time: Monday, June 06, 2016 00:52 - CONCLUSION: No gross bony abnormality seen. Anil Mcneill MD Chest X-Ray 06/06/16101 Signed Impressions: Service Date/Time: Monday, June 06, 2016 00:52 - CONCLUSION: The lungs are symmetrically aerated and clear. Anil Mcneill MD Chest CT 06/06/16101 Signed Impressions: Service Date/Time: Monday, June 06, 2016 01:26 - CONCLUSION: Negative trauma CT thorax. Anil Mcneill MD Abdomen/Pelvis CT 06/06/16101 Signed Impressions: Service Date/Time: Monday, June 06, 2016 01:26 - CONCLUSION: 1. No distended loops of small and large bowel. Questionable thickening of the wall of the ascending colon is nonspecific in appearance. Recommend followup. 2. Prior right inguinal hernia surgery. Right hydrocele. 3. The solid organs of the abdomen and pelvis are grossly intact. Anil Mcneill MD Head CTA 06/06/16 0000 Signed Impressions: Service Date/Time: Monday, June 06, 2016 08:58 - CONCLUSION: Large right frontal hematoma displacing the right anterior cerebral artery. The right anterior cerebral artery is decreased in caliber throughout its visualized length. Gasper Duarte MD Assessment & Plan Diagnosis: (1) Closed skull base fx/hem NEC (2) Skull fracture with concussion (3) Subarach hem-concussion Plan: Traumatic SAH will be at risk for increased bleeding, increased ICP, vasospasm, CSF leak. We will monitor clinically and radiologically. Sedation requested with fentanyl/versed and haldol PRN as well as CTA of the brain to rule out dissection. Seizure, DVT and PUD prophylaxis per protocol. 06/07/16 Malignant ICP is expected even after craniectomy, we will start pressors and try to improve the perfusion pressures. The severity of the injury was discussed with his mother. 06/08/16 CPP improved with pressors but worsened this am when he developed a left pulmonary effusion and increased PCO2. Hypertonic saline is on hold for sodium greater than 160, urine output remains good. Vince Mccormick Jun 08, 2016 08:41
[2016-06-08] MEDS: levETIRAcetam INJ 500 MG in SODIUM CHLORIDE 0.9% INJ 100 ML IV SCH ×2 (09:34→20:45)
[2016-06-08] MEDS: SODIUM CHLORIDE 0.9% FLUSH 5 ML FLUSH IVF SCH ×2 (09:36→20:45)
[2016-06-08] MEDS: DOCUSATE SODIUM 100 MG CAP PO SCH ×2 (09:36→20:45)
[2016-06-08] MEDS: LACTULOSE SYRUP 20 GM/30 ML CUP PO SCH (09:36)
[2016-06-08] MEDS: FAMOTIDINE 20 MG TAB PO SCH ×2 (09:36→20:45)
[2016-06-08] MEDS ORDERED: VASOPRESSIN 40 U/D5W 100 ML Hypotension, do NOT titrate (enter ordered rate) IV SCH ×2 (09:45)
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
[2016-06-08] MEDS: MULTIVITAMIN INJ 10 ML, THIAMINE INJ 100 MG, FOLIC ACID INJ 1 MG in SODIUM CHLORID 0.9%... IV SCH (12:34)
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
[2016-06-08] MEDS: MAGNESIUM HYDROXIDE SUSP 30 ML CUP PO SCH (20:45)
[2016-06-08] MEDS: BACITRACIN TOP OINT 15 GM TUBE TOP SCH (20:47)
[2016-06-08] MEDS: MORPHINE SULFATE 4 MG/ML INJ IV PRN ×2 (21:53→21:55)
[2016-06-08 22:47] LABS: BLOOD GAS HCO3 18 mmol/L (22-26); BLOOD GAS METHEMOGLOBIN 0.8 % (0-2); BLOOD GAS O2 HGB SATURATION 98 % (90-100); BLOOD GAS OXYGEN CONTENT 14.9 Vol % (12.0-20.0); BLOOD GAS PCO2 29 mmHg (38-42); BLOOD GAS PO2 198 mmHg (61-120); BLOOD GAS TOTAL HGB 10.5 G/DL (12.0-16.0); CRITICAL VALUE NO; OXYGEN DEVICE VENTILATOR; TEMP CORR TO 98.6
[2016-06-08 22:48] LABS: DRAW SITE ART LINE; FIO2 80 %; STAT YES; ULNAR PULSE PRESENT
[2016-06-09] VITALS (21 sets, daily range): BP systolic 132–176; BP diastolic 54–76; PULSE 62–86; RESP 20–28; TEMP 91–96; O2SAT 36–100
[2016-06-09 00:21] LABS: AUTOMATED NEUTROPHIL # 11.9 TH/MM3 (1.8-7.7); BASOPHIL # 0.1 TH/MM3 (0-0.2); BASOPHIL % 0.5 % (0.0-2.0); EOSINOPHIL % 0.3 % (0.0-4.0); HEMATOCRIT 28.9 % (39.0-51.0); HEMO FLAGS DIFF FINAL; LYMPH % 10.7 % (9.0-44.0); LYMPHOCYTE # 1.6 TH/MM3 (1.0-4.8); MEAN CELL VOLUME 87.7 FL (80.0-100.0); MEAN CORPUSCULAR HEMOGLOBIN 30.6 PG (27.0-34.0); MEAN CORPUSCULAR HGB CONC 34.9 % (32.0-36.0); MONO % 6.5 % (0.0-8.0); PLATELET COUNT 199 TH/MM3 (150-450); RED BLOOD COUNT 3.29 MIL/MM3 (4.50-5.90); RED CELL DISTRIBUTION WIDTH 14.8 % (11.6-17.2); WHITE BLOOD COUNT 14.6 TH/MM3 (4.0-11.0)
[2016-06-09 00:21] LABS: BLOOD, URINE TRACE (NEG); GLUCOSE,URINE NEG (NEG); KETONE, URINE NEG (NEG); MUCUS URINE FEW /lpf (OCC); NITRITE,URINE NEG (NEG); PH, URINE 5.5 (5.0-8.5); URINE COLOR YELLOW (YELLW/STRAW)
[2016-06-09] MEDS ORDERED: MEPERIDINE HCL 25 MG/ML VIAL IVP PRN (00:30)
[2016-06-09] MEDS ORDERED: Mix all IV Meds in NS IV SCH (00:30)
[2016-06-09] MEDS ORDERED: SODIUM CHLORIDE 0.9% FLUSH 5 ML FLUSH IV FLUSH PRN (00:30)
[2016-06-09] MEDS ORDERED: LORazepam 2 MG/ML VIAL IV PRN (00:30)
[2016-06-09] MEDS ORDERED: ARTIFICIAL TEARS OPTH OINT 3.5 APPLIC/3.5 GM TUBO EACH EYE PRN (00:30)
[2016-06-09] MEDS ORDERED: MIDAZOLAM HCL 2 MG/2 ML VIAL IVS PRN (00:30)
[2016-06-09] MEDS ORDERED: ACETAMINOPHEN 650 MG/20.3 ML UDC NG PRN (00:30)
[2016-06-09 00:32] LABS: APTT (PATIENT) 29.9 SEC (24.3-30.1); INTERNATIONAL NORMALIZED RATIO 1.1 RATIO; PROTHROMBIN TIME - PATIENT 11.7 SEC (9.8-11.6)
[2016-06-09 00:52] LABS: ALKALINE PHOSPHATASE 46 U/L (45-117); ALT (GPT) 22 U/L (12-78); ANION GAP 10 MEQ/L (5-15); AST (GOT) 33 U/L (15-37); BICARBONATE 22.2 MEQ/L (21.0-32.0); BLOOD UREA NITROGEN 12 MG/DL (7-18); CHLORIDE 133 MEQ/L (98-107); CREATINE KINASE 197 U/L (39-308); GLOMERULAR FILTRATION RATE 96 ML/MIN (>89); MAGNESIUM 2.3 MG/DL (1.5-2.5); TOTAL BILIRUBIN ADULT 0.7 MG/DL (0.2-1.0)
[2016-06-09 00:58] LABS: POTASSIUM 2.2 MEQ/L (3.5-5.1); SODIUM (NA) 165 MEQ/L (136-145)
[2016-06-09] MEDS: PROPOFOL 1000 MG/100 ML IV SCH ×7 (01:06→22:29)
[2016-06-09] MEDS: fentaNYL 2,500 MCG/NS 250 ML IV SCH ×3 (01:07→20:07)
[2016-06-09] MEDS: NOREPINEPHRINE 4 MG/250 ML NS IV SCH ×4 (01:09→06:52)
[2016-06-09 01:12] LABS: AMPHETAMINE, URINE NEG (NEG); BARBITURATES, URINE NEG (NEG); COCAINE, URINE NEG (NEG)
[2016-06-09] MEDS: POTASSIUM CHLOR 40 MEQ PREMIX 100 ML IV PRN ×8 (01:16→20:50)
[2016-06-09 01:27] LABS: CKMB 2.6 NG/ML (0.5-3.6)
[2016-06-09 03:26] LABS: BICARBONATE 21.2 MEQ/L (21.0-32.0); MAGNESIUM 2.4 MG/DL (1.5-2.5)
[2016-06-09 03:28] LABS: POTASSIUM 2.3 MEQ/L (3.5-5.1)
[2016-06-09] MEDS: RESP: ALBUTEROL 2.5 MG/IPRATROPIUM 0.5 MG NEB (SCH) INH ×4 (03:48→20:59)
[2016-06-09] MEDS ORDERED: MAGNESIUM SULFATE IV PRN ×2 (05:00)
[2016-06-09] MEDS ORDERED: SODIUM CHLORIDE IV PRN ×2 (05:00)
--- NOTE | 2016-06-09 05:01 | RADRPT ---
EXAM DATE/TIME: 06/09/2016 03:16 [facility] COMPARISON: CHEST SINGLE AP, June 08, 2016, 3:10. INDICATIONS : Shortness of breath. MEDICAL HISTORY : None. SURGICAL HISTORY : None. ENCOUNTER: Subsequent ACUITY: 4 - 6 days PAIN SCORE: Non-responsive. LOCATION: Bilateral chest FINDINGS: 2 AP views of the chest. Endotracheal tube, nasogastric tube remain in place. Decrease in diffuse lef t lung opacity. New hazy right lung base opacity. No evidence of pneumothorax. Cardiomediastinal silh ouette within normal limits. CONCLUSION: Bilateral pulmonary opacity with decrease on the left and increase on the right. Clifton Cartwright MD on June 09, 2016 at 4:57 Board Certified Radiologist. This report was verified electronically.
[2016-06-09] MEDS: POTASSIUM PHOSPHATE INJ 30 MMOL in SODIUM CHLOR 0.9% 250 ML INJ 250 ML IV PRN ×3 (05:07→22:29)
[2016-06-09] MEDS: MIDAZOLAM 100 MG/NS 100 ML DRIP Premix IV SCH ×2 (05:27→11:17)
[2016-06-09] MEDS: VALPROATE INJ 500 MG in SODIUM CHLORIDE 0.9% INJ 100 ML IV SCH ×6 (05:27→23:59)
[2016-06-09 05:54] LABS: BLOOD GAS BASE EXCESS -6.6 mmol/L (-2-2); BLOOD GAS HCO3 17 mmol/L (22-26); BLOOD GAS METHEMOGLOBIN 0.8 % (0-2); BLOOD GAS O2 HGB SATURATION 98 % (90-100); BLOOD GAS OXYGEN CONTENT 21.7 Vol % (12.0-20.0); BLOOD GAS PCO2 27 mmHg (38-42); BLOOD GAS PO2 174 mmHg (61-120); BLOOD GAS TOTAL HGB 15.6 G/DL (12.0-16.0); CRITICAL VALUE NO; OXYGEN DEVICE VENTILATOR; TEMP CORR TO 98.6
[2016-06-09 05:55] LABS: DRAW SITE ART LINE; FIO2 70 %; STAT NO; VENT SETTINGS PRVC/AC
--- NOTE | 2016-06-09 06:08 | PD.PROCEDR ---
Procedure Note Procedure Femoral CVP line A time-out was completed verifying correct patient, procedure, site, positioning , and special equipment if applicable. The patient was placed in a dependent position appropriate for central line placement based on the vein to be cannulated. The patients right groin was prepped and draped in sterile fashion. 1% Lidocaine was used to anesthetize the surrounding skin area. A triple lumen 9-Italian Cordis catheter was introduced into the the common femoral vein using the Seldinger technique and under ultrasound guidance. The catheter was threaded smoothly over the guide wire and appropriate blood return was obtained. Each lumen of the catheter was evacuated of air and flushed with sterile saline. The catheter was then sutured in place to the skin and a sterile dressing applied. Perfusion to the extremity distal to the point of catheter insertion was checked and found to be adequate. Estimated Blood Loss: 1ml The patient tolerated the procedure well and there were no complications. Mike Wang MD Jun 09, 2016 06:08
[2016-06-09 06:24] LABS: BASOPHIL % 0.4 % (0.0-2.0); EOSINOPHIL # 0.1 TH/MM3 (0-0.4); EOSINOPHIL % 0.6 % (0.0-4.0); HEMATOCRIT 28.3 % (39.0-51.0); HEMO FLAGS DIFF FINAL; LYMPH % 11.8 % (9.0-44.0); LYMPHOCYTE # 1.3 TH/MM3 (1.0-4.8); MEAN CELL VOLUME 87.7 FL (80.0-100.0); MEAN CORPUSCULAR HEMOGLOBIN 30.6 PG (27.0-34.0); MEAN CORPUSCULAR HGB CONC 34.9 % (32.0-36.0); NEUT % 80.2 % (16.0-70.0); PLATELET COUNT 172 TH/MM3 (150-450); RED BLOOD COUNT 3.22 MIL/MM3 (4.50-5.90); RED CELL DISTRIBUTION WIDTH 15.1 % (11.6-17.2); WHITE BLOOD COUNT 11.2 TH/MM3 (4.0-11.0)
[2016-06-09 07:08] LABS: ALKALINE PHOSPHATASE 44 U/L (45-117); ALT (GPT) 22 U/L (12-78); AST (GOT) 34 U/L (15-37); BICARBONATE 19.1 MEQ/L (21.0-32.0); BLOOD UREA NITROGEN 12 MG/DL (7-18); CHLORIDE 143 MEQ/L (98-107); GLOMERULAR FILTRATION RATE 91 ML/MIN (>89); MAGNESIUM 3.1 MG/DL (1.5-2.5); TOTAL BILIRUBIN ADULT 0.7 MG/DL (0.2-1.0)
[2016-06-09 07:12] LABS: ANION GAP 7 MEQ/L (5-15); POTASSIUM 1.9 MEQ/L (3.5-5.1); SODIUM (NA) 169 MEQ/L (136-145)
[2016-06-09] MEDS: levETIRAcetam INJ 500 MG in SODIUM CHLORIDE 0.9% INJ 100 ML IV SCH ×2 (07:51→20:05)
[2016-06-09] MEDS: LACTULOSE SYRUP 20 GM/30 ML CUP PO SCH (07:53)
[2016-06-09] MEDS: SODIUM CHLORIDE 0.9% FLUSH 5 ML FLUSH IVF SCH ×2 (07:53→20:07)
[2016-06-09] MEDS: DOCUSATE SODIUM 100 MG CAP PO SCH ×2 (07:53→20:05)
[2016-06-09] MEDS: BACITRACIN TOP OINT 15 GM TUBE TOP SCH ×2 (07:53→20:08)
[2016-06-09] MEDS: FAMOTIDINE 20 MG TAB PO SCH ×2 (07:53→20:05)
[2016-06-09] MEDS: CHLORHEXIDINE 0.12% (ORAL KIT) 15 ML CUP MT SCH ×2 (07:53→20:08)
[2016-06-09] MEDS ORDERED: SODIUM CHLORIDE 0.9% FLUSH 5 ML FLUSH IVF SCH (09:00)
[2016-06-09 09:31] LABS: BICARBONATE 18.6 MEQ/L (21.0-32.0); MAGNESIUM 4.3 MG/DL (1.5-2.5)
[2016-06-09 09:35] LABS: POTASSIUM 1.7 MEQ/L (3.5-5.1)
[2016-06-09] MEDS ORDERED: SODIUM CHLOR 0.45% 1000 ML INJ 1,000 ML IV SCH (10:00)
[2016-06-09] MEDS ORDERED: POTASSIUM CHLORIDE INJ 40 MEQ in SODIUM CHLOR 0.45% 1000 ML INJ 1,000 ML IV SCH ×2 (10:00→19:30)
--- NOTE | 2016-06-09 10:10 | HHI.NSPN ---
Subjective History Day 1 after HALF-WAY, day 2 after craniectomy, ICP 5-40, CPP 50-65, s/p herniation, multiple areas of infarctions in the right frontal and temporal regions and in the left cerebellum. He is intubated and sedated with hypertonic saline and seizure prophylaxis. Pressors were added to improve his perfusion pressures. 06/08/16 New left pulmonary effusion or atelectasis, PCO2 up to 53, CPP still 20- 30, pupils remain small on sedation with propofol/fentanyl and versed 06/09/16 Thermoguard was inserted yesterday with marked improvement in the ICP and perfusion pressures. he is positive 1/5 l from yesterday but his sodium is high 169. His pupils remain small. Vitals . Vital Signs Date Time Temp Pulse Resp B/P Pulse Ox O2 Delivery O2 Flow Rate FiO2 06/09/16 08:12 99 70 06/09/16 08:00 63 06/09/16 08:00 91.0 62 25 132/54 99 06/09/16 08:00 70 06/09/16 06:00 64 06/09/16 06:00 91.4 64 28 137/61 100 06/09/16 05:00 91.4 65 28 135/60 100 06/09/16 04:15 100 70 06/09/16 04:00 66 06/09/16 04:00 91.4 66 28 140/62 100 06/09/16 04:00 80 06/09/16 03:00 91.4 66 28 143/66 100 06/09/16 02:00 67 06/09/16 02:00 92.5 67 28 136/62 100 06/09/16 01:31 100 80 06/09/16 01:00 94.6 76 28 176/76 100 06/09/16 00:00 80 06/09/16 00:00 96.0 86 28 166/70 100 Automatic Cuff 06/09/16 00:00 86 06/08/16 22:00 88 06/08/16 20:17 100 80 06/08/16 20:17 80 06/08/16 20:00 88 06/08/16 20:00 96.3 88 28 100 170/75 06/08/16 20:00 80 06/08/16 18:00 92 06/08/16 17:19 100 80 06/08/16 16:00 87 06/08/16 16:00 80 06/08/16 16:00 96.3 87 28 99 158/73 06/08/16 14:00 90 06/08/16 12:00 95 06/08/16 12:00 80 06/08/16 12:00 97.0 95 28 100 143/75 06/08/16 11:50 100 80 06/08/16 10:00 104 06/08/16 06/08/16 06/09/16 15:00 23:00 07:00 Intake Total 2352 ml 1431 ml 3229 ml Output Total 2122.0 ml 1093.0 ml 2304 ml Balance 230.0 ml 338.0 ml 925 ml Intracranial Pressure (mmHg): 13 Physical Exam Head Head: Incision (old blood at thr drain site otherwise vito are intact) Eyes Eyes: Pupils Equal (2mm minimally reactive) Neuro Mental Status: Sedated Drips: Diprivan @, Fentanyl @ Pupils: Reactive Bilaterally [place] Coma Scale Best Eye Openin - None Best Verbal: 1 - None Best Motor: 1 - None Cardiac Cardiac: Regular Rate & Rhythm Respiratory Respiratory: Rhonchi (improved left base aeration) Gastrointestinal Gastrointestinal: Soft Bowel Sounds: Diminished Genitourinary Genitourinary: Basurto Catheter In Place Musculoskeletal Extremities Upper Extremities Deltoid Bicep Tricep HI W. Ext Right Left Lower Extremeties Ilio Quad Plantar Dorsi EHL Right Left Musculoskeletal Remarks No movement on maximal sedation Extremities Edema: Edematous, SCDs Objective Infectious Disease Cultures Microbiology Date/Time Procedure Status Source Growth 06/08/16 10:50 Gram Stain - Final Resulted Sputum Endotracheal 06/08/16 10:50 Sputum Culture Resulted Sputum Endotracheal Pending Drains Ventric @: 5 cm H2O Ventric Draining: Blood Tinged CSF QIAN Drain Output (ml): 48 Labs Laboratory Tests 06/08/16 12:40 06/08/16 18:50 06/08/16 23:49 06/09/16 02:30 06/09/16 06:00 Laboratory Tests Test 06/08/16 06/08/16 06/08/16 06/09/16 12:40 18:50 23:49 02:30 Sodium Level 165 MEQ/L 164 MEQ/L 165 MEQ/L 167 MEQ/L Serum Osmolality 332 MOSM/KG 334 MOSM/KG 333 MOSM/KG Potassium Level 2.2 MEQ/L 2.3 MEQ/L Chloride Level 133 MEQ/L 136 MEQ/L Carbon Dioxide Level 22.2 MEQ/L 21.2 MEQ/L Anion Gap 10 MEQ/L 10 MEQ/L Blood Urea Nitrogen 12 MG/DL 11 MG/DL Creatinine 0.91 MG/DL 0.93 MG/DL Estimat Glomerular Filtration 96 ML/MIN 94 ML/MIN Rate Random Glucose 91 MG/DL 99 MG/DL Lactic Acid Level 1.9 mmol/L Calcium Level 8.2 MG/DL 8.2 MG/DL Phosphorus Level 0.7 MG/DL Magnesium Level 2.3 MG/DL 2.4 MG/DL Total Bilirubin 0.7 MG/DL Direct Bilirubin 0.2 MG/DL Aspartate Amino Transf 33 U/L (AST/SGOT) Alanine Aminotransferase 22 U/L (ALT/SGPT) Alkaline Phosphatase 46 U/L Total Creatine Kinase 197 U/L Creatine Kinase MB 2.6 NG/ML Total Protein 5.4 GM/DL Albumin 2.2 GM/DL Test 06/09/16 06:00 Sodium Level 169 MEQ/L Potassium Level 1.9 MEQ/L Chloride Level 143 MEQ/L Carbon Dioxide Level 19.1 MEQ/L Anion Gap 7 MEQ/L Blood Urea Nitrogen 12 MG/DL Creatinine 0.95 MG/DL Estimat Glomerular Filtration 91 ML/MIN Rate Random Glucose 101 MG/DL Serum Osmolality 342 MOSM/KG Calcium Level 8.3 MG/DL Phosphorus Level 0.4 MG/DL Magnesium Level 3.1 MG/DL Total Bilirubin 0.7 MG/DL Aspartate Amino Transf 34 U/L (AST/SGOT) Alanine Aminotransferase 22 U/L (ALT/SGPT) Alkaline Phosphatase 44 U/L Total Protein 5.3 GM/DL Albumin 2.1 GM/DL Laboratory Tests Test 06/08/16 23:57 Urine Opiates Screen POS Urine Barbiturates Screen NEG Urine Amphetamines Screen NEG Urine Benzodiazepines Screen POS Urine Cocaine Screen NEG Urine Cannabinoids Screen POS Imaging Remarks Last Impressions Chest X-Ray 06/09/16 0600 Signed Impressions: Service Date/Time: Thursday, June 09, 2016 03:16 - CONCLUSION: Bilateral pulmonary opacity with decrease on the left and increase on the right. Clifton Cartwright MD Head CT 06/07/16 0600 Signed Impressions: Service Date/Time: Tuesday, June 07, 2016 04:31 - CONCLUSION: 1. Postsurgical findings in the right frontal lobe with marked decrease in size of parenchymal hematoma and decrease in right to left midline shift. 2. Persistent intraventricular hemorrhage. 3. Infarcts are now seen in the right frontal lobe , as well as in the right parieto-occipital region (posterior cerebral artery distribution. 4. Infarct in the left cerebellar hemisphere. 5. Right frontal catheter now seen with tip adjacent to the third ventricle. Clifton Cartwright MD Neck CTA 06/06/16 0857 Signed Impressions: Service Date/Time: Monday, June 06, 2016 08:58 - CONCLUSION: Normal examination. Gasper Duarte MD Cervical Spine CT 06/06/16 0115 Signed Impressions: Service Date/Time: Monday, June 06, 2016 01:17 - CONCLUSION: 1. Left inferior occipital bone fracture extends from posterior cortex to the base of the skull with involvement of the left occipital condyle and the posterolateral aspect of the foramen magnum. 2. No fractures seen in the cervical vertebral bodies or posterior elements. Anil Mcneill MD Pelvis X-Ray 06/06/16101 Signed Impressions: Service Date/Time: Monday, June 06, 2016 00:52 - CONCLUSION: No gross bony abnormality seen. Anil Mcneill MD Chest CT 06/06/16101 Signed Impressions: Service Date/Time: Monday, June 06, 2016 01:26 - CONCLUSION: Negative trauma CT thorax. Anil Mcneill MD Abdomen/Pelvis CT 06/06/16101 Signed Impressions: Service Date/Time: Monday, June 06, 2016 01:26 - CONCLUSION: 1. No distended loops of small and large bowel. Questionable thickening of the wall of the ascending colon is nonspecific in appearance. Recommend followup. 2. Prior right inguinal hernia surgery. Right hydrocele. 3. The solid organs of the abdomen and pelvis are grossly intact. Anil Mcneill MD Head CTA 06/06/16 0000 Signed Impressions: Service Date/Time: Monday, June 06, 2016 08:58 - CONCLUSION: Large right frontal hematoma displacing the right anterior cerebral artery. The right anterior cerebral artery is decreased in caliber throughout its visualized length. Gasper Duarte MD Assessment & Plan Diagnosis: (1) Closed skull base fx/hem NEC (2) Skull fracture with concussion (3) Subarach hem-concussion Plan: Traumatic SAH will be at risk for increased bleeding, increased ICP, vasospasm, CSF leak. We will monitor clinically and radiologically. Sedation requested with fentanyl/versed and haldol PRN as well as CTA of the brain to rule out dissection. Seizure, DVT and PUD prophylaxis per protocol. 06/07/16 Malignant ICP is expected even after craniectomy, we will start pressors and try to improve the perfusion pressures. The severity of the injury was discussed with his mother. 06/08/16 CPP improved with pressors but worsened this am when he developed a left pulmonary effusion and increased PCO2. Hypertonic saline is on hold for sodium greater than 160, urine output remains good. 06/09/16 ICP improved with cooling with the thermoguard. IVF changed to 1/2 ns because of climbing sodium levels. No DI as the urine output is slightly less than the input. Prognosis is guarded at this time. Vince Mccormick Jun 09, 2016 10:10
[2016-06-09] MEDS ORDERED: DEXTROSE 5% IN WATE 1000ML INJ 1,000 ML IV ONE (11:00)
[2016-06-09] MEDS ORDERED: SODIUM BICARBONATE 8.4% INJ 50 MEQ in SODIUM CHLOR 0.45% 1000 ML INJ 1,000 ML IV SCH (11:00)
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
[2016-06-09] MEDS: VASOPRESSIN INJ 20 UNITS/ML VIAL SQ SCH ×3 (11:31→22:29)
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
[2016-06-09] MEDS: SODIUM CHLOR 0.45% IV SCH ×2 (11:46→17:10)
[2016-06-09] MEDS: NOREPINEPHRINE IV SCH ×2 (11:46→17:10)
[2016-06-09] MEDS ORDERED: POTASSIUM CHLORIDE INJ 10 MEQ in SODIUM CHLOR 0.45% 1000 ML INJ 1,000 ML IV SCH (12:00)
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
[2016-06-09 13:17] LABS: BLOOD GAS BASE EXCESS -7.6 mmol/L (-2-2); BLOOD GAS CARBOXYHEMOGLOBIN 1.1 % (0-4); BLOOD GAS HCO3 16 mmol/L (22-26); BLOOD GAS METHEMOGLOBIN 0.9 % (0-2); BLOOD GAS O2 HGB SATURATION 98 % (90-100); BLOOD GAS PCO2 27 mmHg (38-42); BLOOD GAS PO2 212 mmHg (61-120); BLOOD GAS TOTAL HGB 9.9 G/DL (12.0-16.0); TEMP CORR TO 98.6
[2016-06-09 13:18] LABS: CRITICAL VALUE YES; OXYGEN DEVICE VENTILATOR
[2016-06-09 13:19] LABS: DRAW SITE ART LINE; FIO2 60 %; STAT NO
[2016-06-09 15:47] LABS: BICARBONATE 18.6 MEQ/L (21.0-32.0)
[2016-06-09 15:52] LABS: POTASSIUM 1.6 MEQ/L (3.5-5.1)
--- NOTE | 2016-06-09 16:12 | HHI.HCPN ---
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 Diallo, Radha TORRES and Cher TORRES. * Palliative care will continue to follow this patient throughout his/her hospitalization to build rapport, assist with symptom management and goal clarification. . (Vibha Steele) Attestation To help prompt me to consider important information that might be impacting today's encounter and assessment, information from prior notes written by myself or my colleagues may have been "brought forward" into today's note. My signature on this note, however, is an attestation that I personally performed the exam, history, and/or decision-making noted today, and, unless otherwise indicated, the interactions with patient, family, and staff as well as the review of records all occurred today. I also attest that the listed assessment and stated plan reflect my best clinical judgment today based on the combination of historical information, prior notes, and today's exam/ interactions. When time spent is documented, it refers only to time spent today by the signer, or if indicated, combined time spent today by collaborating physician/nurse practitioner. . (Vibha Steele) Collaborating MD Comments Chart reviewed. Cased discussed with palliative care [employer]. Above [employer] note reviewed and I concur. . (Umair Huerta MD) Vibha Steele Jun 09, 2016 16:12 Umair Huerta MD August 23, 2016 13:35
[2016-06-09] MEDS ORDERED: POTASSIUM CHLORIDE INJ 40 MEQ in DEXTROSE 5% IN WATE 1000ML INJ 1,000 ML IV SCH ×2 (17:00)
[2016-06-09] MEDS: MAGNESIUM HYDROXIDE SUSP 30 ML CUP PO SCH ×2 (20:03→21:00)
[2016-06-09 21:37] LABS: BICARBONATE 18.8 MEQ/L (21.0-32.0); MAGNESIUM 3.5 MG/DL (1.5-2.5)
[2016-06-09 21:58] LABS: POTASSIUM 1.8 MEQ/L (3.5-5.1)
[2016-06-10] VITALS (20 sets, daily range): BP systolic 111–162; BP diastolic 64–87; PULSE 66–75; RESP 14–20; TEMP 91.4; O2SAT 93–100
[2016-06-10] MEDS: FREE WATER G-TUBE SCH ×4 (00:30→17:20)
[2016-06-10] MEDS: POTASSIUM CHLOR 40 MEQ PREMIX 100 ML IV PRN ×3 (00:34→08:52)
[2016-06-10] MEDS: MORPHINE SULFATE 4 MG/ML INJ IV PRN (01:40)
[2016-06-10] MEDS ORDERED: MIDAZOLAM HCL 5 MG/ML VIAL (1 ML) ONE (01:56)
[2016-06-10] MEDS ORDERED: CISATRACURIUM 100 MG/NS 250 ML IV SCH ×2 (02:45)
[2016-06-10] MEDS ORDERED: CISATRACURIUM BESYLATE 20 MG/10 ML VIAL IV ONE (03:30)
[2016-06-10 03:51] LABS: MAGNESIUM 3.1 MG/DL (1.5-2.5)
[2016-06-10] MEDS: RESP: ALBUTEROL 2.5 MG/IPRATROPIUM 0.5 MG NEB (SCH) INH ×2 (04:02→07:52)
[2016-06-10] MEDS: POTASSIUM PHOSPHATE INJ 30 MMOL in SODIUM CHLOR 0.9% 250 ML INJ 250 ML IV PRN (04:49)
[2016-06-10 05:08] LABS: BICARBONATE 18.4 MEQ/L (21.0-32.0)
[2016-06-10 05:23] LABS: BLOOD GAS CARBOXYHEMOGLOBIN 0.9 % (0-4); BLOOD GAS HCO3 18 mmol/L (22-26); BLOOD GAS METHEMOGLOBIN 0.9 % (0-2); BLOOD GAS O2 HGB SATURATION 97 % (90-100); BLOOD GAS OXYGEN CONTENT 15.4 Vol % (12.0-20.0); BLOOD GAS PCO2 28 mmHg (38-42); BLOOD GAS PO2 114 mmHg (61-120); BLOOD GAS TOTAL HGB 11.2 G/DL (12.0-16.0); CRITICAL VALUE NO; OXYGEN DEVICE VENTILATOR; TEMP CORR TO 91.4
[2016-06-10 05:24] LABS: DRAW SITE ART LINE; FIO2 60 %; STAT NO; VENT SETTINGS PRVC/AC
[2016-06-10] MEDS ORDERED: VASOPRESSIN INJ 40 UNITS in SODIUM CHLORIDE 0.9% INJ 100 ML IV SCH (05:30)
[2016-06-10] MEDS ORDERED: FUROSEMIDE 20 MG/2 ML VIAL IV PUSH ONE (05:30)
[2016-06-10] MEDS ORDERED: NOREPINEPHRINE 4 MG/4 ML AMP ONE (05:32)
--- NOTE | 2016-06-10 05:37 | HHI.PR ---
Subjective Remarks called to the bedside for elevated ICPs. despite cooling, deep sedation, patient still had rising ICPs, up to 36 consistently. I initially added neuromuscular blockade to help with any subclinical shivering. However, this did not alleviate the symptoms. I then bolused with 5mg versed iv which did not have any effect. His serum Na is 172 despite iv free water. I added enteral free water 200mL q6hr in an effort to mitigate his iv free water and stave off further cerebral edema. However, despite all these efforts, his ICP remains malignantly high. We are now on Norepinephrine at 36mcg/min to maintain adequate cerebral perfusion. I have added vasopressin to continue cerebral perfusion. I also had a discussion with Dr. Mccormick about his plan of care. His bone flap is still on. Dr. Mccormick suggested a trial of lasix 20mg iv to help with his positive fluid balance and help with early natiuresis. We discussed my concerns about his ongoing hypokalemia and hypernatremia, but Dr. Mccormick feels this is his only option left. Her recommendation is that removal of the bone flap will not significantly help ICP. I have asked the nurse to add an additional 80mEq of KCL per tube in addition to his ongoing maximal iv KCl replacement to help off-set the K loss in the urine. we will also give 2gm mgso4 to help prevent K loss in the urine. I have examined the patient. He remains deeply sedated, paralyzed. appropriately T 33C. pupils 2mm, sluggishly reactive. otherwise RASS -5 and paralyzed. ICP 36 with an appropriate waveform. EVD patent. Active Problems: Severe Malignant Cerebral Edema Severe Hypernatremia Severe Life-threatening Hypokalemia Severely Elevated ICP Plan: -- Nimbex infusion -- 2gm mgso4 -- lasix 20mg iv x 1 -- continue serial sodiums -- free water per tube 200 mL q6hr. -- continue maximal sedation -- add vasopressin to norepinephrine to maintain CPP. I have discussed this plan at length with Dr. Mccormick with whom this plan was jointly made. This patient remains critically ill with one or more organ systems which are or may become a threat to life. I have spent in excess of 35 minutes discontinuously in the care and management of this patient. This time is exclusive of procedures, and includes, but is not limited to, evaluation of the patient, review of the medical record, discussions with family, consultants, nursing staff, or respiratory therapy, and documentation in the medical record. Buddy Chand MD Jun 10, 2016 05:37
--- NOTE | 2016-06-10 05:54 | RADRPT ---
EXAM DATE/TIME: 06/10/2016 04:40 [facility] COMPARISON: CHEST SINGLE AP, June 09, 2016, 3:16. INDICATIONS : Shortness of breath, possible pulmonary disease. MEDICAL HISTORY : None. SURGICAL HISTORY : None. ENCOUNTER: Subsequent ACUITY: 4 - 6 days PAIN SCORE: Non-responsive. LOCATION: Bilateral chest FINDINGS: Single AP view of the chest. Endotracheal tube and nasogastric tube remain in place. Persistent bilat eral lower lung zone predominant opacity again seen. It is now more symmetric with increased opacity identified in the right lung when compared to the prior study. Small bilateral pleural effusions. CONCLUSION: Bilateral lower lung zone opacity, now more symmetric favoring pulmonary edema. Clifton Cartwright MD on June 10, 2016 at 5:51 Board Certified Radiologist. This report was verified electronically.
[2016-06-10] MEDS: VASOPRESSIN INJ 20 UNITS/ML VIAL SQ SCH ×3 (05:56→21:52)
[2016-06-10] MEDS: VALPROATE INJ 500 MG in SODIUM CHLORIDE 0.9% INJ 100 ML IV SCH ×4 (05:57→23:39)
[2016-06-10] MEDS ORDERED: MAGNESIUM SULFATE 1 GM PREMIX 100 ML IV SCH (06:00)
[2016-06-10] MEDS ORDERED: POTASSIUM CHLORIDE 20 MEQ PWD PACKET OG ONE (06:30)
[2016-06-10] MEDS ORDERED: MAGNESIUM SULFATE 1 GM PREMIX 100 ML ONE (06:35)
[2016-06-10] MEDS: PROPOFOL 1000 MG/100 ML IV SCH ×5 (07:15→23:40)
[2016-06-10] MEDS: fentaNYL 2,500 MCG/NS 250 ML IV SCH ×2 (07:15→14:58)
[2016-06-10] MEDS ORDERED: MAGNESIUM SULFATE IV PRN ×2 (07:17)
[2016-06-10] MEDS ORDERED: DEXTROSE 5% IV PRN ×2 (07:17)
[2016-06-10] MEDS ORDERED: WATER IV PRN ×2 (07:17)
[2016-06-10 07:23] LABS: AUTOMATED NEUTROPHIL # 12.3 TH/MM3 (1.8-7.7); BASOPHIL # 0.1 TH/MM3 (0-0.2); BASOPHIL % 0.4 % (0.0-2.0); EOSINOPHIL # 0.5 TH/MM3 (0-0.4); HEMATOCRIT 31.9 % (39.0-51.0); LYMPH % 10.1 % (9.0-44.0); LYMPHOCYTE # 1.6 TH/MM3 (1.0-4.8); MEAN CELL VOLUME 87.1 FL (80.0-100.0); MEAN CORPUSCULAR HEMOGLOBIN 31.2 PG (27.0-34.0); MEAN CORPUSCULAR HGB CONC 35.8 % (32.0-36.0); MONO % 7.9 % (0.0-8.0); NEUT % 78.6 % (16.0-70.0); PLATELET COUNT 203 TH/MM3 (150-450); RED BLOOD COUNT 3.66 MIL/MM3 (4.50-5.90); WHITE BLOOD COUNT 15.7 TH/MM3 (4.0-11.0)
[2016-06-10 07:24] LABS: HEMO FLAGS AUTO DIFF
[2016-06-10 07:54] LABS: BANDS 48 % (0-6); CORRECTED NUCLEATED RBC 2 /100 WBC (0-0); EOSINOPHILS 2 % (0-4); METAMYELOCYTES 1 % (0-1); MYELOCYTES 1 % (0-0); NEUTROPHIL # MANUAL DIFF 12.6 TH/MM3 (1.8-7.7); POLYS (SEG NEUTROPHILS) 30 % (16-70); WBC DIFF SAMPLE 100
[2016-06-10 07:55] LABS: BURR CELLS 1+ (NORMAL); OVALOCYTES 1+ (NORMAL)
[2016-06-10 07:56] LABS: PLATELET ESTIMATE SMEAR NORMAL (NORMAL); PLATELET MORPHOLOGY NORMAL (NORMAL); SCAN/DIFF FINAL DIFF MANUAL
[2016-06-10] MEDS: CHLORHEXIDINE 0.12% (ORAL KIT) 15 ML CUP MT SCH ×2 (08:00→20:40)
--- NOTE | 2016-06-10 08:20 | HHI.NSPN ---
Subjective History Day 1 after CORRECTION, day 2 after craniectomy, ICP 5-40, CPP 50-65, s/p herniation, multiple areas of infarctions in the right frontal and temporal regions and in the left cerebellum. He is intubated and sedated with hypertonic saline and seizure prophylaxis. Pressors were added to improve his perfusion pressures. 06/08/16 New left pulmonary effusion or atelectasis, PCO2 up to 53, CPP still 20- 30, pupils remain small on sedation with propofol/fentanyl and versed 06/09/16 Thermoguard was inserted yesterday with marked improvement in the ICP and perfusion pressures. he is positive 1/5 l from yesterday but his sodium is high 169. His pupils remain small. 06/10/16 Relentless progressive ICP increase in spite of temporary improvements after hypertonic therapies, pressors, surgery, cooling, indicate progressive cell not compatible with life. ICP now 35-40. EVD drained 68 cc in 24 hrs and the waveform shows soft A and B waves. The QIAN output was 10 cc and it was removed. Palliative care services are following. Vitals . Vital Signs Date Time Temp Pulse Resp B/P Pulse Ox O2 Delivery O2 Flow Rate FiO2 06/10/16 07:52 96 50 06/10/16 06:00 74 06/10/16 04:38 100 60 06/10/16 04:02 99 60 06/10/16 04:00 70 06/10/16 04:00 73 06/10/16 04:00 91.4 73 20 156/72 100 06/10/16 02:00 66 06/10/16 01:28 100 60 06/10/16 00:00 91.4 68 20 162/73 100 06/10/16 00:00 70 06/10/16 00:00 68 06/09/16 22:00 72 06/09/16 20:59 36 60 06/09/16 20:00 70 06/09/16 20:00 91.4 68 20 154/67 100 06/09/16 20:00 69 06/09/16 18:00 71 3/15/17 16:03 100 60 06/09/16 16:00 70 06/09/16 16:00 67 06/09/16 16:00 91.4 67 20 155/61 100 06/09/16 14:00 68 06/09/16 12:00 91.4 68 25 144/56 100 06/09/16 12:00 70 06/09/16 12:00 68 06/09/16 11:32 100 60 06/09/16 10:00 69 06/09/16 06/09/16 06/10/16 15:00 23:00 07:00 Intake Total 3846 ml 2054 ml 2044 ml Output Total 2135 ml 1370 ml 1234 ml Balance 1711 ml 684 ml 810 ml Maximum Temperature: 33 Intracranial Pressure (mmHg): 35 Physical Exam Head Head: Incision (dry blood) Eyes Eyes: Pupils Equal Neuro Drips: Diprivan @, Fentanyl @, Versed @ [place] Coma Scale Best Eye Openin - None Best Verbal: 1 - None Best Motor: 1 - None Cardiac Cardiac: Regular Rate & Rhythm Respiratory Respiratory: CTA Gastrointestinal Gastrointestinal: Soft Bowel Sounds: Present Genitourinary Genitourinary: Absurto Catheter In Place Musculoskeletal Extremities Upper Extremities Deltoid Bicep Tricep HI W. Ext Right Left Lower Extremeties Ilio Quad Plantar Dorsi EHL Right Left Musculoskeletal Remarks No movement on maximal sedation Extremities Edema: SCDs Objective Infectious Disease Cultures Microbiology Date/Time Procedure Status Source Growth 06/09/16 14:30 Aerobic Blood Culture Received Blood Peripheral Pending 06/09/16 14:30 Anaerobic Blood Culture Received Blood Peripheral Pending 06/09/16 14:35 Aerobic Blood Culture Received Blood Peripheral Pending 06/09/16 14:35 Anaerobic Blood Culture Received Blood Peripheral Pending Drains Ventric @: 5 cm H2O Ventric Draining: Blood Tinged CSF Labs Laboratory Tests 06/09/16 08:50 06/09/16 12:20 06/09/16 14:20 06/09/16 18:00 06/09/16 20:30 06/10/16 03:00 06/10/16 07:00 Laboratory Tests Test 06/09/16 06/09/16 06/09/16 06/09/16 08:50 12:20 14:20 18:00 Sodium Level 172 MEQ/L 174 MEQ/L 171 MEQ/L 172 MEQ/L Potassium Level 1.7 MEQ/L 1.6 MEQ/L Chloride Level 146 MEQ/L 142 MEQ/L Carbon Dioxide Level 18.6 MEQ/L 18.6 MEQ/L Anion Gap 7 MEQ/L 10 MEQ/L Blood Urea Nitrogen 12 MG/DL 13 MG/DL Creatinine 0.96 MG/DL 0.94 MG/DL Estimat Glomerular Filtration 90 ML/MIN 92 ML/MIN Rate Random Glucose 104 MG/DL 183 MG/DL Calcium Level 8.3 MG/DL 8.4 MG/DL Magnesium Level 4.3 MG/DL Serum Osmolality 351 MOSM/KG 347 MOSM/KG Phosphorus Level 0.3 MG/DL Test 06/09/16 06/10/16 06/10/16 06/10/16 20:30 00:05 03:00 07:00 Sodium Level 172 MEQ/L 173 MEQ/L Potassium Level 1.8 MEQ/L 2.0 MEQ/L Chloride Level 146 MEQ/L 145 MEQ/L Carbon Dioxide Level 18.8 MEQ/L 18.4 MEQ/L Anion Gap 7 MEQ/L 10 MEQ/L Blood Urea Nitrogen 13 MG/DL 15 MG/DL Creatinine 0.95 MG/DL 0.89 MG/DL Estimat Glomerular Filtration 91 ML/MIN 98 ML/MIN Rate Random Glucose 88 MG/DL 91 MG/DL Calcium Level 8.2 MG/DL 8.2 MG/DL Phosphorus Level 1.0 MG/DL 2.2 MG/DL Magnesium Level 3.5 MG/DL 3.1 MG/DL Serum Osmolality 349 MOSM/KG 350 MOSM/KG Imaging Remarks Last Impressions Chest X-Ray 06/10/16599 Signed Impressions: Service Date/Time: May 04:40 - CONCLUSION: Bilateral lower lung zone opacity, now more symmetric favoring pulmonary edema. Clifton Cartwright MD Head CT 06/07/16599 Signed Impressions: Service Date/Time: Tuesday, June 07, 2016 04:31 - CONCLUSION: 1. Postsurgical findings in the right frontal lobe with marked decrease in size of parenchymal hematoma and decrease in right to left midline shift. 2. Persistent intraventricular hemorrhage. 3. Infarcts are now seen in the right frontal lobe , as well as in the right parieto-occipital region (posterior cerebral artery distribution. 4. Infarct in the left cerebellar hemisphere. 5. Right frontal catheter now seen with tip adjacent to the third ventricle. Clifton Cartwright MD Neck CTA 06/06/16 0857 Signed Impressions: Service Date/Time: Monday, June 06, 2016 08:58 - CONCLUSION: Normal examination. Gasper Duarte MD Cervical Spine CT 06/06/16 0115 Signed Impressions: Service Date/Time: Monday, June 06, 2016 01:17 - CONCLUSION: 1. Left inferior occipital bone fracture extends from posterior cortex to the base of the skull with involvement of the left occipital condyle and the posterolateral aspect of the foramen magnum. 2. No fractures seen in the cervical vertebral bodies or posterior elements. Anil Mcneill MD Pelvis X-Ray 06/06/16101 Signed Impressions: Service Date/Time: Monday, June 06, 2016 00:52 - CONCLUSION: No gross bony abnormality seen. Anil Mcneill MD Chest CT 06/06/16101 Signed Impressions: Service Date/Time: Monday, June 06, 2016 01:26 - CONCLUSION: Negative trauma CT thorax. Anil Mcneill MD Abdomen/Pelvis CT 06/06/16101 Signed Impressions: Service Date/Time: Monday, June 06, 2016 01:26 - CONCLUSION: 1. No distended loops of small and large bowel. Questionable thickening of the wall of the ascending colon is nonspecific in appearance. Recommend followup. 2. Prior right inguinal hernia surgery. Right hydrocele. 3. The solid organs of the abdomen and pelvis are grossly intact. Anil Mcneill MD Head CTA 06/06/16 0000 Signed Impressions: Service Date/Time: Monday, June 06, 2016 08:58 - CONCLUSION: Large right frontal hematoma displacing the right anterior cerebral artery. The right anterior cerebral artery is decreased in caliber throughout its visualized length. Gasper Duarte MD Assessment & Plan Diagnosis: (1) Closed skull base fx/hem NEC Plan: GREGG and multiple areas of infarctions noted, malignat ICP as the cell continues (2) Skull fracture with concussion (3) Subarach hem-concussion Plan: Traumatic SAH will be at risk for increased bleeding, increased ICP, vasospasm, CSF leak. We will monitor clinically and radiologically. Sedation requested with fentanyl/versed and haldol PRN as well as CTA of the brain to rule out dissection. Seizure, DVT and PUD prophylaxis per protocol. 06/07/16 Malignant ICP is expected even after craniectomy, we will start pressors and try to improve the perfusion pressures. The severity of the injury was discussed with his mother. 06/08/16 CPP improved with pressors but worsened this am when he developed a left pulmonary effusion and increased PCO2. Hypertonic saline is on hold for sodium greater than 160, urine output remains good. 06/09/16 ICP improved with cooling with the thermoguard. IVF changed to 1/2 ns because of climbing sodium levels. No DI as the urine output is slightly less than the input. Prognosis is guarded at this time. 06/10/16 Palliative care services are following, poor prognosis was shared with the family Vince Mccormick Jun 10, 2016 08:20
[2016-06-10] MEDS: FAMOTIDINE 20 MG TAB PO SCH ×2 (08:21→20:25)
[2016-06-10] MEDS: DOCUSATE SODIUM 100 MG CAP PO SCH ×2 (08:21→20:25)
[2016-06-10] MEDS: LACTULOSE SYRUP 20 GM/30 ML CUP PO SCH (08:21)
[2016-06-10] MEDS: SODIUM CHLORIDE 0.9% FLUSH 5 ML FLUSH IVF SCH ×2 (08:22→21:18)
[2016-06-10] MEDS: BACITRACIN TOP OINT 15 GM TUBE TOP SCH ×2 (08:22→21:18)
[2016-06-10] MEDS: levETIRAcetam INJ 500 MG in SODIUM CHLORIDE 0.9% INJ 100 ML IV SCH ×2 (09:08→20:25)
[2016-06-10] MEDS ORDERED: LACTATED RINGER'S 1000 ML INJ 1,000 ML IV ONE (09:45)
[2016-06-10 09:55] LABS: BICARBONATE 19.8 MEQ/L (21.0-32.0); POTASSIUM 4.2 MEQ/L (3.5-5.1)
[2016-06-10] MEDS: NOREPINEPHRINE IV SCH ×2 (10:32→14:40)
[2016-06-10] MEDS: SODIUM CHLOR 0.45% IV SCH ×2 (10:32→14:40)
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
[2016-06-10] MEDS: MIDAZOLAM 100 MG/NS 100 ML DRIP Premix IV SCH ×2 (11:58→20:39)
[2016-06-10] MEDS: WATE IV SCH ×2 (12:00)
[2016-06-10] MEDS: POTASSIUM CHLORIDE IV SCH ×2 (12:00)
[2016-06-10] MEDS: DEXTROSE 5% IV SCH ×2 (12:00)
[2016-06-10 13:18] LABS: POTASSIUM 4.7 MEQ/L (3.5-5.1)
--- NOTE | 2016-06-10 14:08 | HHI.HCPN ---
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 his/her hospitalization to build rapport, assist with symptom management and goal clarification. . (Vibha Steele) Attestation To help prompt me to consider important information that might be impacting today's encounter and assessment, information from prior notes written by myself or my colleagues may have been "brought forward" into today's note. My signature on this note, however, is an attestation that I personally performed the exam, history, and/or decision-making noted today, and, unless otherwise indicated, the interactions with patient, family, and staff as well as the review of records all occurred today. I also attest that the listed assessment and stated plan reflect my best clinical judgment today based on the combination of historical information, prior notes, and today's exam/ interactions. When time spent is documented, it refers only to time spent today by the signer, or if indicated, combined time spent today by collaborating physician/nurse practitioner. . (Vibha Steele) Collaborating MD Comments Chart reviewed. Cased discussed with palliative care COMPLIANCE QUALITY PERFORMANCE ANALYST. Above COMPLIANCE QUALITY PERFORMANCE ANALYST note reviewed and I concur. . (Umair Huerta MD) Vibha Steele Jun 10, 2016 14:08 Umair Huerta MD August 23, 2016 13:14
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
[2016-06-10 19:25] LABS: BICARBONATE 22.3 MEQ/L (21.0-32.0); POTASSIUM 5.8 MEQ/L (3.5-5.1)
[2016-06-10] MEDS: MAGNESIUM HYDROXIDE SUSP 30 ML CUP PO SCH (20:24)
[2016-06-10] MEDS ORDERED: FUROSEMIDE 40 MG/4 ML VIAL IV PUSH ONE (22:00)
[2016-06-11] VITALS (17 sets, daily range): BP systolic 108–155; BP diastolic 58–85; PULSE 63–106; RESP 16–22; TEMP 91.4–96.5; O2SAT 0–96
[2016-06-11] MEDS ORDERED: MIDAZOLAM HCL 5 MG/ML VIAL (1 ML) ONE (00:06)
[2016-06-11] MEDS: DEXTROSE 5% IV SCH ×2 (00:08)
[2016-06-11] MEDS: POTASSIUM CHLORIDE IV SCH ×2 (00:08)
[2016-06-11] MEDS: WATE IV SCH ×2 (00:08)
[2016-06-11 00:40] LABS: BLOOD GAS BASE EXCESS -3.8 mmol/L (-2-2); BLOOD GAS HCO3 21 mmol/L (22-26); BLOOD GAS METHEMOGLOBIN 0.7 % (0-2); BLOOD GAS O2 HGB SATURATION 96 % (90-100); BLOOD GAS OXYGEN CONTENT 15.6 Vol % (12.0-20.0); BLOOD GAS PCO2 42 mmHg (38-42); BLOOD GAS PO2 106 mmHg (61-120); BLOOD GAS TOTAL HGB 11.5 G/DL (12.0-16.0); CRITICAL VALUE NO; OXYGEN DEVICE VENTILATOR; TEMP CORR TO 98.6
[2016-06-11 00:41] LABS: DRAW SITE ART LINE; FIO2 50 %; STAT YES; VENT SETTINGS SEE COMMENTS
[2016-06-11 00:56] LABS: MAGNESIUM 2.6 MG/DL (1.5-2.5); POTASSIUM 5.7 MEQ/L (3.5-5.1)
[2016-06-11] MEDS: PROPOFOL 1000 MG/100 ML IV SCH ×3 (02:11→08:25)
[2016-06-11] MEDS: fentaNYL 2,500 MCG/NS 250 ML IV SCH (02:11)
[2016-06-11 05:19] LABS: BLOOD GAS BASE EXCESS -2.3 mmol/L (-2-2); BLOOD GAS HCO3 22 mmol/L (22-26); BLOOD GAS METHEMOGLOBIN 0.7 % (0-2); BLOOD GAS O2 HGB SATURATION 95 % (90-100); BLOOD GAS OXYGEN CONTENT 27.5 Vol % (12.0-20.0); BLOOD GAS PCO2 41 mmHg (38-42); BLOOD GAS PO2 98 mmHg (61-120); BLOOD GAS TOTAL HGB 20.5 G/DL (12.0-16.0); CRITICAL VALUE NO; OXYGEN DEVICE VENTILATOR; TEMP CORR TO 98.6
[2016-06-11 05:20] LABS: DRAW SITE ART LINE; FIO2 50 %; STAT NO; VENT SETTINGS PRVC/AC18/700
[2016-06-11] MEDS: VALPROATE INJ 500 MG in SODIUM CHLORIDE 0.9% INJ 100 ML IV SCH ×3 (05:56→18:00)
[2016-06-11] MEDS: MIDAZOLAM 100 MG/NS 100 ML DRIP Premix IV SCH (05:56)
[2016-06-11] MEDS: FREE WATER G-TUBE SCH ×2 (06:00)
[2016-06-11] MEDS: VASOPRESSIN INJ 20 UNITS/ML VIAL SQ SCH (06:04)
--- NOTE | 2016-06-11 06:20 | RADRPT ---
EXAM DATE/TIME: 06/11/2016 03:33 [facility] COMPARISON: CHEST SINGLE AP, June 10, 2016, 4:40. INDICATIONS : Shortness of breath. MEDICAL HISTORY : None. SURGICAL HISTORY : None. ENCOUNTER: Subsequent ACUITY: 1 week PAIN SCORE: Non-responsive. LOCATION: Bilateral chest FINDINGS: A single view of the chest demonstrates endotracheal tube in satisfactory position. NG enters stomach . Bilateral mostly basilar airspace consolidation. No pneumothorax. CONCLUSION: 1. Basilar lung consolidation similar to June 10. Endotracheal tube and nasogastric tube unchanged. Tapan Del Cid MD on June 11, 2016 at 6:16 Board Certified Radiologist. This report was verified electronically.
[2016-06-11 06:38] LABS: AUTOMATED NEUTROPHIL # 16.5 TH/MM3 (1.8-7.7); BASOPHIL # 0.1 TH/MM3 (0-0.2); BASOPHIL % 0.6 % (0.0-2.0); EOSINOPHIL # 0.3 TH/MM3 (0-0.4); EOSINOPHIL % 1.5 % (0.0-4.0); HEMATOCRIT 32.7 % (39.0-51.0); MEAN CELL VOLUME 86.6 FL (80.0-100.0); MEAN CORPUSCULAR HEMOGLOBIN 29.4 PG (27.0-34.0); MEAN CORPUSCULAR HGB CONC 33.9 % (32.0-36.0); MONO % 7.1 % (0.0-8.0); NEUT % 85.8 % (16.0-70.0); PLATELET COUNT 159 TH/MM3 (150-450); RED BLOOD COUNT 3.78 MIL/MM3 (4.50-5.90); RED CELL DISTRIBUTION WIDTH 15.4 % (11.6-17.2); WHITE BLOOD COUNT 19.2 TH/MM3 (4.0-11.0)
[2016-06-11 06:42] LABS: HEMO FLAGS AUTO DIFF
[2016-06-11 07:10] LABS: ALKALINE PHOSPHATASE 73 U/L (45-117); ALT (GPT) 35 U/L (12-78); ANION GAP 8 MEQ/L (5-15); AST (GOT) 125 U/L (15-37); BICARBONATE 24.9 MEQ/L (21.0-32.0); BLOOD UREA NITROGEN 16 MG/DL (7-18); CHLORIDE 125 MEQ/L (98-107); GLOMERULAR FILTRATION RATE 79 ML/MIN (>89); MAGNESIUM 2.4 MG/DL (1.5-2.5); POTASSIUM 5.2 MEQ/L (3.5-5.1)
[2016-06-11 07:13] LABS: BANDS 26 % (0-6); BLASTS 1 % (0-0); CORRECTED NUCLEATED RBC 8 /100 WBC (0-0); EOSINOPHILS 1 % (0-4); METAMYELOCYTES 14 % (0-1); MYELOCYTES 10 % (0-0); NEUTROPHIL # MANUAL DIFF 16.3 TH/MM3 (1.8-7.7); POLYS (SEG NEUTROPHILS) 35 % (16-70); WBC DIFF SAMPLE 100
[2016-06-11 07:15] LABS: OVALOCYTES 1+ (NORMAL); SCAN/DIFF FINAL DIFF MANUAL
[2016-06-11 07:16] LABS: BURR CELLS 1+ (NORMAL); PLATELET ESTIMATE SMEAR NORMAL (NORMAL); PLATELET MORPHOLOGY NORMAL (NORMAL)
[2016-06-11 07:18] LABS: SODIUM (NA) 158 MEQ/L (136-145)
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
[2016-06-11] MEDS ORDERED: FUROSEMIDE 40 MG/4 ML VIAL IV PUSH ONE (08:00)
[2016-06-11] MEDS ORDERED: Vancomycin Consult Pharmacy 1 EA OTHER SCH (08:00)
[2016-06-11] MEDS: NOREPINEPHRINE IV SCH ×2 (08:04→08:05)
[2016-06-11] MEDS: CHLORHEXIDINE 0.12% (ORAL KIT) 15 ML CUP MT SCH (08:04)
[2016-06-11] MEDS: SODIUM CHLOR 0.45% IV SCH ×2 (08:04→08:05)
[2016-06-11] MEDS: LACTULOSE SYRUP 20 GM/30 ML CUP PO SCH (08:05)
[2016-06-11] MEDS: BACITRACIN TOP OINT 15 GM TUBE TOP SCH (08:05)
[2016-06-11] MEDS: SODIUM CHLORIDE 0.9% FLUSH 5 ML FLUSH IVF SCH (08:05)
[2016-06-11] MEDS: DOCUSATE SODIUM 100 MG CAP PO SCH (08:05)
[2016-06-11] MEDS: levETIRAcetam INJ 500 MG in SODIUM CHLORIDE 0.9% INJ 100 ML IV SCH (08:15)
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
[2016-06-11] MEDS ORDERED: VANCOMYCIN INJ 1,750 MG in SODIUM CHLORID 0.9% 500 ML INJ 500 ML IV SCH (13:00)
[2016-06-11 13:25] LABS: BICARBONATE 24.9 MEQ/L (21.0-32.0); MAGNESIUM 2.4 MG/DL (1.5-2.5); POTASSIUM 4.8 MEQ/L (3.5-5.1)
[2016-06-11] MEDS ORDERED: DEXTROSE 50% IN WATER 50 ML VIAL(D50) ONE (16:33)
--- NOTE | 2016-06-11 17:16 | HHI.DS ---
Summary Note Date of : Jun 11, 2016 Admission Date Jun 06, 2016 at 01:32 Admitting Diagnosis subarachnoid hemorrhage Diagnosis at Time of : (1) Skull fracture with concussion ICD Code: S02.91XA Diagnosis: Secondary (2) Subarach hem-concussion ICD Code: S06.6X9A Diagnosis: Principal (3) Encephalopathy ICD Code: G93.40 Diagnosis: Secondary Procedures Placement of EVD, right craniectimy, evacuation of clot CBC/BMP: 06/11/16 0600 06/11/16 1145 Significant Findings Laboratory Tests Test 06/08/16 06/08/16 06/08/16 06/08/16 18:50 22:31 23:49 23:57 Sodium Level 164 MEQ/L 165 MEQ/L (136-145) (136-145) Serum Osmolality 334 MOSM/KG 333 MOSM/KG (275-295) (275-295) Blood Gas HCO3 18 mmol/L (22-26) Blood Gas Base Excess -6.0 mmol/L (-2-2) Arterial Blood Partial 29 mmHg (38-42) Pressure CO2 Arterial Blood Partial 198 mmHg Pressure O2 (61-120) Blood Gas Hemoglobin 10.5 G/DL (12.0-16.0) White Blood Count 14.6 TH/MM3 (4.0-11.0) Red Blood Count 3.29 MIL/MM3 (4.50-5.90) Hemoglobin 10.1 GM/DL (13.0-17.0) Hematocrit 28.9 % (39.0-51.0) Neutrophils (%) (Auto) 82.0 % (16.0-70.0) Neutrophils # (Auto) 11.9 TH/MM3 (1.8-7.7) Monocytes # (Auto) 1.0 TH/MM3 (0-0.9) Prothrombin Time 11.7 SEC (9.8-11.6) Potassium Level 2.2 MEQ/L (3.5-5.1) Chloride Level 133 MEQ/L (98-107) Calcium Level 8.2 MG/DL (8.5-10.1) Phosphorus Level 0.7 MG/DL (2.5-4.9) Total Protein 5.4 GM/DL (6.4-8.2) Albumin 2.2 GM/DL (3.4-5.0) Urine Occult Blood TRACE (NEG) Urine Leukocyte Esterase TRACE (NEG) Urine RBC 5 /hpf (0-3) Urine Mucus FEW /lpf (OCC) Urine Opiates Screen POS (NEG) Urine Benzodiazepines Screen POS (NEG) Urine Cannabinoids Screen POS (NEG) Test 06/09/16 06/09/16 06/09/16 06/09/16 02:30 05:42 06:00 08:50 Sodium Level 167 MEQ/L 169 MEQ/L 172 MEQ/L (136-145) (136-145) (136-145) Potassium Level 2.3 MEQ/L 1.9 MEQ/L 1.7 MEQ/L (3.5-5.1) (3.5-5.1) (3.5-5.1) Chloride Level 136 MEQ/L 143 MEQ/L 146 MEQ/L (98-107) (98-107) (98-107) Calcium Level 8.2 MG/DL 8.3 MG/DL 8.3 MG/DL (8.5-10.1) (8.5-10.1) (8.5-10.1) Blood Gas HCO3 17 mmol/L (22-26) Blood Gas Base Excess -6.6 mmol/L (-2-2) Arterial Blood Partial 27 mmHg (38-42) Pressure CO2 Arterial Blood Partial 174 mmHg Pressure O2 (61-120) Arterial Blood Oxygen Content 21.7 Vol % (12.0-20.0) White Blood Count 11.2 TH/MM3 (4.0-11.0) Red Blood Count 3.22 MIL/MM3 (4.50-5.90) Hemoglobin 9.9 GM/DL (13.0-17.0) Hematocrit 28.3 % (39.0-51.0) Neutrophils (%) (Auto) 80.2 % (16.0-70.0) Neutrophils # (Auto) 9.0 TH/MM3 (1.8-7.7) Carbon Dioxide Level 19.1 MEQ/L 18.6 MEQ/L (21.0-32.0) (21.0-32.0) Serum Osmolality 342 MOSM/KG (275-295) Phosphorus Level 0.4 MG/DL (2.5-4.9) Magnesium Level 3.1 MG/DL 4.3 MG/DL (1.5-2.5) (1.5-2.5) Alkaline Phosphatase 44 U/L (45-117) Total Protein 5.3 GM/DL (6.4-8.2) Albumin 2.1 GM/DL (3.4-5.0) Test 06/09/16 06/09/16 06/09/16 06/09/16 10:00 12:20 13:08 14:20 Urine Osmolality 108 MOSM/KG (300-1300) Urine Random Magnesium 334.0 (22-130) Urine Creatinine 17.0 mg/dL (20-370) Sodium Level 174 MEQ/L 171 MEQ/L (136-145) (136-145) Serum Osmolality 351 MOSM/KG (275-295) Blood Gas HCO3 16 mmol/L (22-26) Blood Gas Base Excess -7.6 mmol/L (-2-2) Arterial Blood Partial 27 mmHg (38-42) Pressure CO2 Arterial Blood Partial 212 mmHg Pressure O2 (61-120) Blood Gas Hemoglobin 9.9 G/DL (12.0-16.0) Potassium Level 1.6 MEQ/L (3.5-5.1) Chloride Level 142 MEQ/L (98-107) Carbon Dioxide Level 18.6 MEQ/L (21.0-32.0) Random Glucose 183 MG/DL (74-106) Calcium Level 8.4 MG/DL (8.5-10.1) Phosphorus Level 0.3 MG/DL (2.5-4.9) Test 06/09/16 06/09/16 06/10/16 06/10/16 18:00 20:30 00:05 03:00 Sodium Level 172 MEQ/L 172 MEQ/L 173 MEQ/L (136-145) (136-145) (136-145) Serum Osmolality 347 MOSM/KG 349 MOSM/KG (275-295) (275-295) Potassium Level 1.8 MEQ/L 2.0 MEQ/L (3.5-5.1) (3.5-5.1) Chloride Level 146 MEQ/L 145 MEQ/L (98-107) (98-107) Carbon Dioxide Level 18.8 MEQ/L 18.4 MEQ/L (21.0-32.0) (21.0-32.0) Calcium Level 8.2 MG/DL 8.2 MG/DL (8.5-10.1) (8.5-10.1) Phosphorus Level 1.0 MG/DL 2.2 MG/DL (2.5-4.9) (2.5-4.9) Magnesium Level 3.5 MG/DL 3.1 MG/DL (1.5-2.5) (1.5-2.5) Test 06/10/16 06/10/16 06/10/16 06/10/16 05:14 07:00 09:15 12:40 Blood Gas HCO3 18 mmol/L (22-26) Blood Gas Base Excess -7.0 mmol/L (-2-2) Arterial Blood Partial 28 mmHg (38-42) Pressure CO2 Blood Gas Hemoglobin 11.2 G/DL (12.0-16.0) White Blood Count 15.7 TH/MM3 (4.0-11.0) Red Blood Count 3.66 MIL/MM3 (4.50-5.90) Hemoglobin 11.4 GM/DL (13.0-17.0) Hematocrit 31.9 % (39.0-51.0) Neutrophils (%) (Auto) 78.6 % (16.0-70.0) Neutrophils # (Auto) 12.3 TH/MM3 (1.8-7.7) Monocytes # (Auto) 1.2 TH/MM3 (0-0.9) Eosinophils # (Auto) 0.5 TH/MM3 (0-0.4) Band Neutrophils % 48 % (0-6) Neutrophils # (Manual) 12.6 TH/MM3 (1.8-7.7) Myelocytes 1 % (0-0) Nucleated Red Blood Cells 2 /100 WBC (0-0) Ovalocytes 1+ (NORMAL) [place] Cells 1+ (NORMAL) Serum Osmolality 350 MOSM/KG 343 MOSM/KG (275-295) (275-295) Sodium Level 170 MEQ/L 168 MEQ/L (136-145) (136-145) Chloride Level 141 MEQ/L (98-107) Carbon Dioxide Level 19.8 MEQ/L (21.0-32.0) Estimat Glomerular Filtration 88 ML/MIN (>89) Rate Random Glucose 114 MG/DL (74-106) Calcium Level 8.0 MG/DL (8.5-10.1) Test 06/10/16 06/11/16 06/11/16 06/11/16 18:30 00:10 00:25 05:00 Sodium Level 166 MEQ/L 161 MEQ/L (136-145) (136-145) Potassium Level 5.8 MEQ/L 5.7 MEQ/L (3.5-5.1) (3.5-5.1) Chloride Level 137 MEQ/L 130 MEQ/L (98-107) (98-107) Serum Osmolality 347 MOSM/KG 336 MOSM/KG (275-295) (275-295) Calcium Level 7.7 MG/DL 7.8 MG/DL (8.5-10.1) (8.5-10.1) Phosphorus Level 6.7 MG/DL (2.5-4.9) Magnesium Level 2.6 MG/DL (1.5-2.5) Blood Gas HCO3 21 mmol/L (22-26) Blood Gas Base Excess -3.8 mmol/L -2.3 mmol/L (-2-2) (-2-2) Arterial Blood pH 7.32 7.36 (7.380-7.420) (7.380-7.420) Blood Gas Hemoglobin 11.5 G/DL 20.5 G/DL (12.0-16.0) (12.0-16.0) Arterial Blood Oxygen Content 27.5 Vol % (12.0-20.0) Test 06/11/16 06/11/16 06:00 11:45 White Blood Count 19.2 TH/MM3 (4.0-11.0) Red Blood Count 3.78 MIL/MM3 (4.50-5.90) Hemoglobin 11.1 GM/DL (13.0-17.0) Hematocrit 32.7 % (39.0-51.0) Neutrophils (%) (Auto) 85.8 % (16.0-70.0) Lymphocytes (%) (Auto) 5.0 % (9.0-44.0) Neutrophils # (Auto) 16.5 TH/MM3 (1.8-7.7) Monocytes # (Auto) 1.4 TH/MM3 (0-0.9) Band Neutrophils % 26 % (0-6) Neutrophils # (Manual) 16.3 TH/MM3 (1.8-7.7) Metamyelocytes 14 % (0-1) Myelocytes 10 % (0-0) Nucleated Red Blood Cells 8 /100 WBC (0-0) Blastocytes 1 % (0-0) Ovalocytes 1+ (NORMAL) [place] Cells 1+ (NORMAL) Sodium Level 158 MEQ/L 158 MEQ/L (136-145) (136-145) Potassium Level 5.2 MEQ/L (3.5-5.1) Chloride Level 125 MEQ/L 125 MEQ/L (98-107) (98-107) Estimat Glomerular Filtration 79 ML/MIN (>89) 72 ML/MIN (>89) Rate Serum Osmolality 328 MOSM/KG 325 MOSM/KG (275-295) (275-295) Calcium Level 7.6 MG/DL 7.9 MG/DL (8.5-10.1) (8.5-10.1) Phosphorus Level 6.1 MG/DL 5.4 MG/DL (2.5-4.9) (2.5-4.9) Aspartate Amino Transf 125 U/L (15-37) (AST/SGOT) Total Protein 6.0 GM/DL (6.4-8.2) Albumin 1.9 GM/DL (3.4-5.0) Imaging Head CT shows a left occipital fx, left sphenoid skull fx, SAH on admission CT chest abdomen pelvis with no evidence of traumatic injuries CT C-spine: No evidence of fracture Chest x-ray: Lung tobias clear with no obvious effusions or infiltrates X-ray pelvis: No fracture noted per radiology Hospital Course Right frontal hemorrhage with herniation developed the day after admission, followed by resection, craniectomy, EVD and multiple infarcts seen on CT. 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 The patient is clinically brain . Vince Mccormick Jun 11, 2016 17:16
[2016-06-11 17:17] LABS: BLOOD GAS BASE EXCESS -0.5 mmol/L (-2-2); BLOOD GAS CARBOXYHEMOGLOBIN 1.2 % (0-4); BLOOD GAS HCO3 23 mmol/L (22-26); BLOOD GAS METHEMOGLOBIN 0.9 % (0-2); BLOOD GAS O2 HGB SATURATION 93 % (90-100); BLOOD GAS OXYGEN CONTENT 14.5 Vol % (12.0-20.0); BLOOD GAS PCO2 35 mmHg (38-42); BLOOD GAS PO2 74 mmHg (61-120); BLOOD GAS TOTAL HGB 11.1 G/DL (12.0-16.0); CRITICAL VALUE NO; DRAW SITE ART LINE; FIO2 70 %; OXYGEN DEVICE VENTILATOR; STAT YES; TEMP CORR TO 98.6; VENT SETTINGS PRVC/AC
[2016-06-11 17:43] LABS: BLOOD GAS BASE EXCESS -1.9 mmol/L (-2-2); BLOOD GAS CARBOXYHEMOGLOBIN 0.7 % (0-4); BLOOD GAS HCO3 25 mmol/L (22-26); BLOOD GAS METHEMOGLOBIN 0.9 % (0-2); BLOOD GAS O2 HGB SATURATION 93 % (90-100); BLOOD GAS PCO2 67 mmHg (38-42); BLOOD GAS PO2 98 mmHg (61-120); BLOOD GAS TOTAL HGB 11.4 G/DL (12.0-16.0); TEMP CORR TO 98.6
[2016-06-11 17:44] LABS: CRITICAL VALUE YES; DRAW SITE ART LINE; LITER FLOW 6 L/M; OXYGEN DEVICE 6L INSUFFLATOR; STAT YES
[2016-06-11] MEDS ORDERED: DEXTROSE 50% IN WATER 50 ML VIAL(D50) IV PUSH ONE (17:45)
--- NOTE | 2016-06-11 17:58 | HHI.HCPN ---
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 Patient was immediately taken to the OR for decompression. Patient is now heavily sedated on Fentanyl, Diprivan and Versed. Now on Nimbex as well. Progressively increasing ICP despite temporary improvements after hypertonic solutions, pressors, surgery and cooling catheter. ICP now 3540. On vasopressin in addition to norepinephrine to maintain CP >65. Patient has experienced a devastating neurological injury. Family is aware and will likely withdraw artificial life support in the upcoming days. . Code Status: Alternative Code Plan * ALTERNATE CODEINTUBATION ONLY * Decision-making:Patient is currently not capacitated to participate in clarification of medical treatment goals. It is unknown if the patient will regain his capacity secondary to severe TBI. Per [place] statutes, in the absence of written advanced directives healthcare proxy decision-making falls to the patient's parents (Bryanna and Uli). * Goals: Brain is imminent. * Progressively increasing ICP despite temporary improvements after hypertonic solutions, pressors, surgery and cooling catheter. ICP > 69 overnight. On vasopressin in addition to norepinephrine to maintain CP >65. Pupils 5mm and fixed. Dr. Ta and Dr. Queen both indicating brain is imminent. Plan to rewarm patient and assess neurological function. * Met with multiple family members at bedside. They are aware that brain is imminent and are grieving appropriately. Palliative care provided support and active listening while the family participated in life review. . (Vibha Steele) Attestation To help prompt me to consider important information that might be impacting today's encounter and assessment, information from prior notes written by myself or my colleagues may have been "brought forward" into today's note. My signature on this note, however, is an attestation that I personally performed the exam, history, and/or decision-making noted today, and, unless otherwise indicated, the interactions with patient, family, and staff as well as the review of records all occurred today. I also attest that the listed assessment and stated plan reflect my best clinical judgment today based on the combination of historical information, prior notes, and today's exam/ interactions. When time spent is documented, it refers only to time spent today by the signer, or if indicated, combined time spent today by collaborating physician/nurse practitioner. . (Vibha Steele) Collaborating MD Comments Chart reviewed. Cased discussed with palliative care SHUTTLE THREADER. Above BRIAN note reviewed and I concur. . (Umair Huerta MD) iVbha Steele Jun 11, 2016 17:58 Umair Huerta MD August 23, 2016 13:36
[2016-06-13] MEDS ORDERED: PHARMACY ORDERED LAB XX ONE (00:45)
== END 2016-06-11 22:25 | disposition expired | DRG 955 ==
LOC: NEPI 00:54 → NEDH 01:32 → EDBD 01:32 → N03A 01:55
PROVIDERS: ADMIT Surgery; ATTEND Surgery
PROC: 009700Z Drainage of Cerebral Hemisphere with Drainage Device, Open Approach (ICD-10-PCS; 2016-06-06)
PROC: 5A1955Z Respiratory Ventilation, Greater than 96 Consecutive Hours (ICD-10-PCS; 2016-06-06)
PROC: 0HQ0XZZ Repair Scalp Skin, External Approach (ICD-10-PCS; 2016-06-06)
PROC: 0BH17EZ Insertion of Endotracheal Airway into Trachea, Via Natural or Artificial Opening (ICD-10-PCS; 2016-06-06)
PROC: 4A103BD Monitoring of Intracranial Pressure, Percutaneous Approach (ICD-10-PCS; 2016-06-06)
PROC: 00C00ZZ Extirpation of Matter from Brain, Open Approach (ICD-10-PCS; principal; 2016-06-06 10:51)
PROC: 02HV33Z Insertion of Infusion Device into Superior Vena Cava, Percutaneous Approach (ICD-10-PCS; 2016-06-09)
DX: S06.6X6A Traumatic subarachnoid hemorrhage with loss of consciousness greater than 24 hours without return to pre-existing conscious level with patient surviving, initial encounter (principal); S72.002A Fracture of unspecified part of neck of left femur, initial encounter for closed fracture; G93.6 Cerebral edema; J96.00 Acute respiratory failure, unspecified whether with hypoxia or hypercapnia; Z51.5 Encounter for palliative care; J98.11 Atelectasis; J90 Pleural effusion, not elsewhere classified; E23.2 Diabetes insipidus; S06.5X6A Traumatic subdural hemorrhage with loss of consciousness greater than 24 hours without return to pre-existing conscious level with patient surviving, initial encounter; S02.119A Unspecified fracture of occiput, initial encounter for closed fracture; I10 Essential (primary) hypertension; R40.2433 Glasgow coma scale score 3-8, at hospital admission; M06.9 Rheumatoid arthritis, unspecified; D72.829 Elevated white blood cell count, unspecified; E87.6 Hypokalemia; R60.9 Edema, unspecified; V28.4XXA Motorcycle driver injured in noncollision transport accident in traffic accident, initial encounter; Y90.6 Blood alcohol level of 120-199 mg/100 ml; F10.129 Alcohol abuse with intoxication, unspecified; F17.210 Nicotine dependence, cigarettes, uncomplicated; F41.8 Other specified anxiety disorders
CPT/HCPCS: 12002; 31500; 36556; 70450; 70496; 70498; 71010; 71260; 72125; 72170; 74177; 80048; 80053; 80076; 80307; 81001; 81003; 82248; 82435; 82436; 82550; 82552; 82565; 82570; 82805; 82947; 82948; 83605; 83735; 83930; 83935; 84100; 84132; 84133; 84295; 84300; 84520; 85007; 85025; 85027; 85610; 85730; 86403; 86850; 86900; 86901; 87040; 87070; 87077; 87102; 87147; 87186; 87205; 87206; 87641; 88304; 94002; 94003; 94640; 94664; 94770; 96374; 99291; C1713; C9399; G0390; J0330; J0360; J0690; J1580; J1630; J1940; J1953; J2060; J2150; J2250; J2270; J2405; J3010; J3370; J3411; J3475; J3480; J7030; J7040; J7050; J7070; J7120; L0150; Q9967